=== PATIENT | male | born 1955 | race Caucasian/White ===

== ENCOUNTER 2021-01-11 05:31 | Observation (INO) ==
--- NOTE | 2020-12-29 09:32 | PAT Medication Instructions ---
Medication Instructions Date of Service December 29, 2020 Home Medications aspirin 81 mg tablet,delayed release 81 mg PO QAM nitroglycerin 0.4 mg sublingual tablet 0.4 mg SUBLINGUAL Q5M PRN atorvastatin 20 mg tablet 20 mg PO HS cholecalciferol (vitamin D3) 50 mcg (2,000 unit) capsule 50 mcg PO QAM dorzolamide 2 % eye drops 1 drp OPHTHALMIC (EYE) QAM latanoprost 0.005 % eye drops 1 drp OPHTHALMIC (EYE) HS lisinopril 10 mg tablet 10 mg PO BID metformin 1,000 mg tablet 1,000 mg PO BID metoprolol tartrate 25 mg tablet 25 mg PO BID Continue as directed nitroglycerin 0.4 mg sublingual tablet 0.4 mg SUBLINGUAL Q5M PRN (if needed) ASK your prescriber and surgeon aspirin 81 mg tablet,delayed release 81 mg PO QAM DO NOT take the morning of surgery cholecalciferol (vitamin D3) 50 mcg (2,000 unit) capsule 50 mcg PO QAM lisinopril 10 mg tablet 10 mg PO BID metformin 1,000 mg tablet 1,000 mg PO BID Take morning of surgery With a small sip of water, OTHERWISE NOTHING TO EAT OR DRINK AFTER MIDNIGHT: dorzolamide 2 % eye drops 1 drp OPHTHALMIC (EYE) QAM metoprolol tartrate 25 mg tablet 25 mg PO BID Take evening before surgery atorvastatin 20 mg tablet 20 mg PO HS latanoprost 0.005 % eye drops 1 drp OPHTHALMIC (EYE) HS lisinopril 10 mg tablet 10 mg PO BID metformin 1,000 mg tablet 1,000 mg PO BID metoprolol tartrate 25 mg tablet 25 mg PO BID Other Notes If you have any questions please call us at [phone] or [phone] or [phone] or [phone]
--- NOTE | 2021-01-02 08:39 | Anesthesiology Consultation ---
Date of Service January 02, 2021 Assessment & Plan (1) Encounter for pre-operative examination: - COVID screening: Per assessment on 01/02: Travel screen negative, no known COVID-19 positive contacts or current COVID-19 related symptoms. Patient vaccinated. Surgeon arranging preop COVID testing. Awaiting results. - Check BSG AM DOS - Cardiology telemedicine visit (08/07/20): 02/2020 echo/stress test findings reviewed with patient > medical management recommended. "c/o chest pain, angina pattern is unchanged at baseline.. CCS class II. C/o shortness of breath, does have mild dyspnea on exertion, which has not changed.. Reasonably active for stated age.. Clinically CAD status is stable angina as well as controlled CCS class II3, will continue same medications and close clinical monitoring.. Blood pressures adequately controlled.. CHF is clinically compensated." Patient denies cardiopulmonary complaints and reports good functional status at subsequent PAT visit 01/02/21. Chart Review Chart Review: Acceptable Risk for Surgery and Patient seen in Pre Admission Testing Teaching & Discussion Pre-Anesthesia Teaching/Discussion Notes: Instructed NPO after midnight before surgery,except medications with 15 cc of water. Medication instructions provided according to the PAT guidelines. History Surgery Operation Date: 01/11/21 09:40 Proposed Procedures p Robotic Laparoscopic Assisted Radical Retropublic Prostatectomy, Possible Open, Possible Pelvic Lymph Node Distection Possible Suprapubic Tube Placement - Mike Duran, DO Height/Weight Height: 5 ft 10 in Weight: 98.7 kg Allergies Allergy/AdvReac Type Severity Reaction Status Date / Time azithromycin Allergy Intermediate Rash Verified 12/28/20 08:23 latanoprost [From Xalatan] AdvReac Intermediate Blood Shot Verified 12/29/20 10:25 Eyes Medications Home Medications Medication Instructions Recorded Confirmed Last Taken aspirin 81 mg tablet,delayed 81 mg PO QAM 07/27/20 12/28/20 Unknown release nitroglycerin 0.4 mg sublingual 0.4 mg SUBLINGUAL Q5M PRN 07/27/20 12/28/20 Unknown tablet atorvastatin 20 mg tablet 20 mg PO HS tab 12/07/20 12/28/20 Unknown cholecalciferol (vitamin D3) 50 50 mcg PO QAM 12/07/20 12/28/20 Unknown mcg (2,000 unit) capsule dorzolamide 2 % eye drops 1 drp OPHTHALMIC (EYE) QAM ml 12/07/20 12/28/20 Unknown latanoprost 0.005 % eye drops 1 drp OPHTHALMIC (EYE) HS ml 12/07/20 12/28/20 Unknown lisinopril 10 mg tablet 10 mg PO BID tab 12/07/20 12/28/20 Unknown metformin 1,000 mg tablet 1,000 mg PO BID 12/07/20 12/28/20 Unknown metoprolol tartrate 25 mg tablet 25 mg PO BID tab 12/07/20 12/28/20 Unknown Past Medical History Medical History Arthritis LBP BPH (benign prostatic hyperplasia) CAD (coronary artery disease) 09/2015 > stent x1 10/2015 > stents x2 Follows with [facility] Diabetes NIDDM Elevated prostate specific antigen (PSA) Glaucoma Hypertension Nephrolithiasis Prostate cancer Exercise / Class Metabolic Activity II 4-5 Yardwork/Stairs/Walk up hill Past Family History Family History Father , Passed age 91 of natural causes Prostate cancer, Onset Age: 75 TURBT?? Then later had to have catheter placed Family history of diabetes mellitus Mother , Passed age 42 of cardiac disorder No problems noted. Sister No problems noted. Sister No problems noted. Sister No problems noted. Son No problems noted. Daughter No problems noted. Past Surgical History Surgical History H/O heart artery stent 09/2015 > stent x1 10/2015 > stents x2 [facility] History of colonoscopy History of foot surgery R/L (d/t industrial accident/feet were crushed)- 1970 History of prostate biopsy 10/26/20 History of umbilical hernia repair Past Anesthesia History No Hx of Anesthesia Complications and No Family Hx of Anesthesia Complications History of PONV No Hx of PONV and No Hx of Motion Sickness Social History Smoking Status: Former smoker Do You Dip or Chew Tobacco: No Smoking End Date: Quit 1980 Hx Alcohol Use: Yes Alcohol type: beer and wine Alcohol Intake Frequency Comment: Rare Hx Substance Use: No Review of Systems Patient denies chest pain, shortness of breath, dyspnea on exertion, fever, chills, cough, wheezing, palpitations. Physical Exam Vital Signs VITALS BP 112/74 P 56 TEMP 98.0 SP02 98%RA RESP 18 PHYSICAL Full cervical extension range of motion. Full TMJ range of motion. TMD 3.5 finger breaths Mallampati Score 3 Dentition: several missing including upper front (does have partial) Lungs: clear throughout to auscultation Cardiac: regular rate and rhythm, no murmurs noted Spine: normal Carotid arteries: negative bruit Extremities: no edema Lab Results Anesthesia Preop Results Results Anesthesia Widget: WBC 6.40 K/uL (4.8-10.8) 01/02/21 Hgb 16.0 g/dL (14.0-18.0) 01/02/21 Hct 45.5 % (42-52) 01/02/21 Plt 170 K/uL (130-400) 01/02/21 Na 140 mmol/L (136-145) 01/02/21 K 4.3 mmol/L (3.5-5.1) 01/02/21 Cl 109 mmol/L (98-107) H 01/02/21 CO2 25 mmol/L (21-32) 01/02/21 BUN 17 mg/dl (7-18) 01/02/21 Creat 0.78 mg/dl (0.6-1.4) 01/02/21 Glucose Level 117 mg/dl (70-99) H 01/02/21 HA1c 6.3 % (4.5-5.6) H 01/02/21 Blood Type O Positive 01/02/21 Antibody Screen NEGATIVE 01/02/21 Testing Laboratory Results 12/20/20 UA negative Electrocardiogram Date: 01/02/21 Normal sinus rhythm at 60 bpm. LAD. Unconfirmed report. Chest X-Ray Date: 01/02/21 Findings: + NAD Echocardiogram Date: 03/14/20 EF 45%, consistent with mildly reduced LV systolic function. Mild generalized hypokinesis. Grade 1 diastolic dysfunction. Mild TR. RVSP 26 mmHg. Ascending aorta is mildly dilated (3.8 cm). Stress Test Date: 03/14/20 Type: exercise Stress test positive for ischemia by EKG criteria in recover period (noted to be positive during the recovery period on his previous stress test as well per report). 88% MPHR. Fair exercise tolerance. 7.0 METs. Hemodynamic response normal. Reviewed by cardiology and determined that they will monitor symptoms r/t stress test findings. Cardiac Catheterization Date: 02/07/17 Angiographically moderate to severe three-vessel occlusive coronary disease. Patent stents in LAD, circumflex and right coronary arteries. Mildly reduced LV systolic function. Normal LVEDP. Given present coronary anatomy, patient should be managed medically with aggressive risk factor modification and close clinical follow-up per report. PCI of LAD can be considered for drug refractory angina. Patient denies cardiopulmonary complaints and reports good functional status at PAT visit 01/02/2021.
[2021-01-11] MEDS ORDERED: LACTATED RINGER'S 1,000 ML IV SCH (06:00)
[2021-01-11] MEDS ORDERED: ceFAZolin 2000MG 2,000 MG/15 ML SYR IV SCH (06:00)
[2021-01-11] MEDS ORDERED: HEPARIN SOD 5,000 UNIT/0.5 ML VIAL SQ SCH (06:00)
[2021-01-11] MEDS ORDERED: LR 15ML/HR IV SCH (06:00)
[2021-01-11] MEDS ORDERED: ONDANSETRON INJ 2 MG/ML 2 ML VIAL ONE (06:43)
[2021-01-11] MEDS ORDERED: ROCURONIUM BROMIDE 10 MG/ML 5 ML VIAL IV ONE ×3 (06:43→11:43)
[2021-01-11] MEDS ORDERED: DEXAMETHASONE SOD INJ 4 MG/ML VIAL ONE (06:43)
[2021-01-11] MEDS ORDERED: PROPOFOL IV EMULSION 10 MG/ML 20 ML VIAL IV ONE (06:43)
[2021-01-11] MEDS ORDERED: LIDOCAINE 2% 2 ML VIAL/AMP(20MG/ML) INFIL ONE (06:43)
[2021-01-11] MEDS ORDERED: PHENYLEPHRINE 100MCG/ML 5ML SYR ONE (06:43)
[2021-01-11] MEDS ORDERED: MIDAZOLAM HCL 1 MG/ML 2ML VIAL ONE (06:44)
[2021-01-11] MEDS ORDERED: HYDROmorphone INJ 2 MG/ML SYR/VIAL ONE (06:44)
[2021-01-11] MEDS ORDERED: SUGAMMADEX SODIUM 200 MG/2 ML VIAL IV ONE (07:00)
--- NOTE | 2021-01-11 07:03 | History & Physical Bridge Note ---
Date of Service January 11, 2021 History & Physical Bridge Note I have examined the patient, reviewed the History & Physical and in the interval since the performance of the History & Physical I have noted the following changes of clinical significance: no changes noted
[2021-01-11] MEDS ORDERED: BUPIVACAINE 0.5 % 5 MG/1 ML MPF 30ML VIAL ONE (07:22)
[2021-01-11] MEDS ORDERED: ONDANSETRON INJ 2 MG/ML 2 ML VIAL IV PRN ×2 (08:23→14:12)
[2021-01-11] MEDS ORDERED: HYDROmorphone INJ 2 MG/ML SYR/VIAL IV PRN (08:23)
[2021-01-11] MEDS ORDERED: ePHEDrine sulfate 50 MG/ML AMP IV PRN (08:23)
[2021-01-11] MEDS ORDERED: ATROPINE SULFATE 0.1 MG/ML 10ML SYR IV PRN (08:23)
[2021-01-11] MEDS ORDERED: SURGICEL ABSORB HEMOSTAT 2IN X 14IN TOP ONE (10:48)
[2021-01-11] MEDS ORDERED: fentaNYL citrate 100 MCG/2 ML VIAL ONE (12:07)
--- NOTE | 2021-01-11 12:41 | Operative Report ---
PG Post Operative Report Pre & Post Diagnosis Operation Date: 01/11/21 07:30 Pre-Op Diagnosis: Prostate Cancer Post-Op Diagnosis: Prostate Cancer I identified the patient and participated in the time-out.: Yes Procedure Operation Date: 01/11/21 07:30 Actual Procedures p Robotic Laparoscopic Assisted Radical Retropubic Prostatectomy and extensive lysis of adhesions (Not Applicable) - Mike Duran DO Surgeon Mike Duran, II, DO Char Filter Operator Jonathan MATHUR Estimated Blood Loss 100 Findings Consistent with Post-Op Diagnosis Severe adhesions of omentum to mesh/hernia repair. Specimens Prostate and Seminal Vesicle Drains 10 Fr Flat Drain 18 Fr Sky catheter. Anesthesia Type General Complications none Disposition Disposition: Recovery Room Indications Patient with Prostate Cancer. Risk and benefits were discussed at length. Patient elected to undergo robotic assisted laparoscopic Radical Prostatectomy. Description of Procedure The patient was brought to the operative suite and placed under general endotracheal intubation anesthesia in the supine position. The patient was transferred to the dorsal lithotomy position. At this point, the patient prepped and draped in the usual sterile fashion and a timeout was completed. Preoperative antibiotics of Ancef 2 grams had been given. SRINIVAS's and SCD's were placed on the patient's lower extremities. A catheter was placed using sterile technique. With the time out completed the patient was placed into Trendelenburg and the skin at the umbilicus was anesthetized. A small incision was made superior to the umbilicus. The mesh from his umbilical repair was noted. It was decided to go superior to the edge and cut down under direct visualization. Once in the abdomen a significant amount of adhesions were noted to the mesh and site of repair. The lateral port site was marked and anesthetized. A small incision was made and under palpation, A Varess Needle was placed and confirmed to be in the abdominal cavity. The Abdominal cavity was insufflated to 15 mmHG. The 8 mm port was then placed in the lateral incision. A laparoscopic camera was placed into the port and the abdominal cavity inspected. No concerning features were noted. Extensive adhesions were noted from the omentum to the mesh. No bowel was noted to be adhered to the midline however laterally and superiorly there was bowel adhesions. These were away from the operative area and were not manipulated. At this point, the skin was marked for port placement and 8mm working ports were placed. The skin was anesthetized down to fascia and an approx 1cm incision was made to place the 2 x 8mm ports. A 12mm and 5 mm music assistant ports were also placed in similar fashion under direct visualization. Extensive lysis of adhesion was then completed laparoscopically. Approx 30 minutes were required in addition to remove the adhesions from the operative fie ld. Finally a 12 mm port with the 8 mm port was placed at the umbilical incision. The patient was transferred into steep Trendelenburg position and the legs lowered. The robot was positioned and docked. The camera was placed and all trocars were positioned under direct visualization. Jonathan MATHUR was integral in port placement, camera utilization, and docking procedure. She remained in sterile attire and then proceeded to assist the remainder of the case. At this point, I transitioned to the robotic console. At this point, the sigmoid colon was mobilized superiorly and the pelvis asse ssed. Adhesions were freed to allow mobilization. The peritoneum in the midline was opened between rectum and bladder and the vas deferens and seminal vesicles exposed. These were dissected with blunt technique. The vas was clipped and cut and mobilized. Cautery was used to assist dissection avoiding the tissue posteriorly near the rectum. The tissues lateral to the seminal vesicles were clipped with a hemolock and all bleeding controlled. This was taken as inferior as possible from this position. The medial umbilical ligaments were then identified and the peritoneum directly lateral on the right followed by the left was opened. The tissues were bluntly dissected to free the bladder's lateral attachments. This was taken down to the pubic bone and exposed the endopelvic fascia bilaterally. The medial ligaments were cut and the bladder dropped. The tissues was dissected anterior to the prostate. The endopelvic fascia on each side was then opened and the lateral edges of the prostate dissected. The Dorsal venous complex of the prostate was dissected and assessed. A 2-0 PDS suture was used to ligate the vessels. A suspension stitch was used and clipped. Electrocautery was used to cut the anterior attachments, the puboprostatic ligaments, and venous tissues. A large artery on the left, likely an accessory pudendal, was able to be persevered with careful dissection. The sky was manipulated to better visual the bladder neck and dissection was taken using electrocautery. The bladder neck was opened and dissected from the prostate. The UO were identified and dissection taken in a direction to avoid each side. The vas stump and seminal vesicles were exposed and used to assist in traction to dissect. The prostatic pedicles were better exposed. The posterior prostate was dissected. An attempt was made to limit cautery and utilize cold dissection of the lateral posterior prostate to attempt preservation of the neurovascular bundle bilaterally. Hemolock clips were utilized to clip the prostatic pedicle bilaterally. The dissection was taken to the apex of the prostate. The anterior prostate was released and the urethra exposed. Cold cutting was used to open the anterior portion and expose the catheter. This was removed and the urethra incised. The prostate was further freed and grasped and removed from the field. The entire dissection bed was inspected.Hemostatic agent was placed in the region. No areas of injury or bleeding was noted. Care was taken to examine the perirectal tissues. A probe was placed and no injuries or other issues were o bserved. The bladder neck and urethra were then approximated with a running barbed suture starting at the 5 o'clock position and moving to the 12 o'clock on each side. This was tied at the anterior portion. A leak test was completed without any evidence of issues. The entire dissection space was inspected one final time. No bleeding or injuries or areas of concern were noted. No tumor or other concerning features were noted. At this point, the robot was undocked and moved away from the patient. The patient was taken out of Trendelenberg. The port sites were all assessed laparoscopically. The endoscopic bag was moved into the midline port. The 10mm port site was closed with the Juan Pino device. The other ports were assessed and no issues observed. The umbilical incision was opened further exposing fascia which was then opened in order to removed the prostate in the bag. The prostate was removed. A running PDS suture was used to close fascia and included the superior edge of the mesh. The skin at each site was closed with a celine. The area was cleaned and bandages placed on each incision. The patient was cleaned and bandaged, aroused from anesthesia, and transferred to the pacu in stable condition having tolerated the procedure well with no complications. I was present and participated in all aspects of the procedure. Jonathan MATHUR was critical in the portions as mentioned above. Will plan to observe postoperatively and monitor. Sky to be remain in place until followup. I attest to the content of the Intraoperative Record and any orders documented therein. Any exceptions are noted below.
[2021-01-11] MEDS ORDERED: PHARMACY GLYCEMIC MGMT CONSULT PRN (13:05)
[2021-01-11] MEDS: fentaNYL citrate 100 MCG/2 ML VIAL IV PRN ×2 (13:14→13:23)
--- NOTE | 2021-01-11 13:15 | Anesthesiology Progress Note ---
Date of Service January 11, 2021 Anesthesia Post Procedure Vital Signs Vital Signs: Temp Pulse Pulse Resp BP Pulse Ox 01/11/21 13:05 76 15 127/98 99 01/11/21 12:55 91 H 17 138/95 97 01/11/21 12:47 36.3 C L 76 20 137/91 94 01/11/21 06:14 36.7 C 67 20 105/82 97 Pain Intensity Lower Abdomen: Pain Intensity: 4 Transfer of Care Handoff Completed per policy Notes Mental Status: alert / awake / arousable and participated in evaluation Patient Amnestic to Procedure: Yes Nausea / Vomiting: adequately controlled Pain: adequately controlled Airway Patency, RR, SpO2: stable & adequate BP & HR: stable & adequate Hydration State: stable & adequate Anesthetic Complications: no major complications apparent and Pt Satisfied with anesthetic care
[2021-01-11 13:20] LABS: Basophils # (auto) 0.01 K/uL (0-0.2); Basophils % (auto) 0.1 %; Hematocrit (blood only) 49.4 % (42-52); Hemoglobin 17.1 g/dL (14.0-18.0); Immature Granulocytes # (auto) 0.06 K/uL (0.00-0.02); Immature Granulocytes % (auto) 0.4 %; Lymphocytes # (auto) 0.92 K/uL (1.2-3.4); Lymphocytes % (auto) 5.4 %; Mean Corpuscular Hemoglobin 31.2 pg (25-34); Mean Corpuscular Volume 90.1 fL (80-100); Mean Platelet Volume 10.5 fL (7.4-10.4); Monocytes # (auto) 0.43 K/uL (0.11-0.59); Monocytes % (auto) 2.5 %; Neutrophils # (auto) 15.56 K/uL (1.4-6.5); Neutrophils % (auto) 91.6 %; Platelet Count 179 K/uL (130-400); RDW Coefficient of Variation 13.2 % (11.5-14.5); RDW Standard Deviation 43.4 fL (36.4-46.3); Red Blood Count 5.48 M/uL (4.7-6.1); White Blood Count 16.98 K/uL (4.8-10.8)
[2021-01-11 13:32] LABS: Mean Corpuscular Hgb Conc 34.6 g/dL (32-36)
[2021-01-11 13:37] LABS: BUN Creatinine Ratio 16.1 (10-20); Calcium 8.7 mg/dl (8.5-10.1); Creatinine Clr Calc Pharmacy 62.9 ml/min; Est GFR (African American) 63.7 ml/min; Est GFR (Non-African American) 54.9 ml/min; Potassium 5.2 mmol/L (3.5-5.1)
[2021-01-11] MEDS ORDERED: MoRPHine SULFATE 2 MG/ML CARP IV PRN ×2 (14:12)
[2021-01-11] MEDS ORDERED: ACETAMINOPHEN 325 MG TAB PO PRN (14:12)
[2021-01-11] MEDS ORDERED: oxyCODONE HCL IR 5 MG TAB (IMMEDIATE RELEASE) PO PRN (14:12)
[2021-01-11] MEDS ORDERED: NITROGLYCERIN SL 0.4 MG/TAB TAB SL PRN (14:12)
[2021-01-11] MEDS ORDERED: DEXTROSE 50% 50 ML SYRINGE IV PRN (14:45)
[2021-01-11] MEDS ORDERED: CARBOHYDRATES FOR HYPOGLYCEMIA PO PRN (14:45)
[2021-01-11] MEDS ORDERED: GLUCOSE 40% GEL 15 GM TUBE PO PRN (14:45)
[2021-01-11] MEDS ORDERED: GLUCAGON FOR INJ 1 MG VIAL IM PRN (14:45)
[2021-01-11] MEDS ORDERED: GLUCOSE 10 TABS/TUBE PO PRN (14:45)
--- NOTE | 2021-01-11 14:48 | Pharmacy Report ---
Pharmacy Glycemic Short Note 2 - Date of Service January 11, 2021 - Glycemic Short BSG Results (Last 24 hours): 01/11/21 01/11/21 01/11/21 06:40 13:00 13:12 Glucose 191 H POC Glucose 126 H 167 H 01/11/21 14:25 Glucose POC Glucose 194 H OUTPATIENT ANTIDIABETIC REGIMEN: * Metformin 1000 mg PO BIDM * HbA1c = 6.3% (01/02/21) ASSESSMENT: * 65 yo M admitted this afternoon s/p prostatectomy. Pharmacy has been consulted to assist with inpatient glycemic management. * Preoperative BSG was 126 mg/dL. Postoperative BSG was 167 mg/dL. No perioperative steroids were given. Patient is ordered a clear liquid diet. * Pt is maintained on oral antidiabetic agents as an outpatient * Oral agents are not recommended for inpatient use d/t drug interactions, changing PO intake, and difficulty titrating for acute hyper/hypoglycemia. ADA recommends re-initiating outpatient oral agents 1-2 days prior to discharge if/when appropriate if they were held on admission. Will hold oral agents for admission and utilize SQ basal bolus insulin regimen which is the recommended regimen for inpatient glycemic control. * Will initiate weight based insulin dosing for insulin nina patient and titrate based on BSG trends. * ADA & AACE recommend a goal blood sugar range 140-180 mg/dl for the majority of critically ill & non-critically ill patients. However, more stringent targets may be selected in individual cases. Will utilize more stringent goal of 110-140mg/dl based on patient age & comorbidities. Additionally, tighter glycemic control is warranted to facilitate wound/infection healing. PLAN FOR INPATIENT GLYCEMIC CONTROL: * Hold outpatient oral diabetes medications * Consider restarting Metformin tomorrow AM if tolerating PO intake * Basal insulin * None * Bolus insulin * NovoLog per scale ACHS or Q6hrs while NPO * Goal Range: Low 110 mg/dL - High 140 mg/dL * Correction Factor: 25 mg/dL/unit * Nutritional / Prandial insulin per carb ratio of 1 unit per 8 grams CHO consumed PLAN FOR DISCHARGE: * HbA1c is at goal for this patient. Continue Metformin 1000 mg PO BIDM upon discharge.
[2021-01-11] MEDS: LACTATED RINGER'S 1,000 ML IV SCH (17:05)
[2021-01-11] MEDS: ceFAZolin 2000MG 2,000 MG/15 ML SYR IV SCH ×2 (17:07→23:19)
[2021-01-11] MEDS: INSULIN ASPART 100 UNITS/ML 3 ML PEN SC SCH ×2 (17:52→22:19)
[2021-01-11] MEDS: lisinopril 10 MG TAB PO SCH (22:22)
[2021-01-11] MEDS: ATORVASTATIN 20 MG TAB PO SCH (22:23)
[2021-01-11] MEDS: METOPROLOL TARTRATE 25 MG TAB PO SCH (22:24)
[2021-01-11] MEDS: HEPARIN SOD 5,000 UNIT/0.5 ML VIAL SQ SCH (22:24)
[2021-01-11] MEDS: LATANOPROST 0.005% OP SOLN 2.5 ML BTL OP SCH (22:25)
[2021-01-11] MEDS ORDERED: CALCIUM CARBONATE 500 MG CHEWABLE TAB PO PRN (22:51)
[2021-01-11] MEDS ORDERED: CALCIUM CARBONATE 500 MG CHEWABLE TAB ONE (23:32)
[2021-01-12] MEDS: oxyCODONE HCL IR 5 MG TAB (IMMEDIATE RELEASE) PO PRN ×4 (02:23→21:04)
[2021-01-12] MEDS: LACTATED RINGER'S 1,000 ML IV SCH ×3 (02:24→21:04)
[2021-01-12 06:41] LABS: Hematocrit (blood only) 39.7 % (42-52); Hemoglobin 13.6 g/dL (14.0-18.0); Immature Granulocytes # (auto) 0.04 K/uL (0.00-0.02); Immature Granulocytes % (auto) 0.4 %; Lymphocytes % (auto) 10.5 %; Mean Corpuscular Hemoglobin 30.6 pg (25-34); Mean Corpuscular Hgb Conc 34.3 g/dL (32-36); Mean Corpuscular Volume 89.4 fL (80-100); Mean Platelet Volume 10.5 fL (7.4-10.4); Monocytes # (auto) 1.57 K/uL (0.11-0.59); Neutrophils # (auto) 7.76 K/uL (1.4-6.5); Neutrophils % (auto) 74.1 %; Platelet Count 163 K/uL (130-400); RDW Coefficient of Variation 13.4 % (11.5-14.5); RDW Standard Deviation 43.8 fL (36.4-46.3); Red Blood Count 4.44 M/uL (4.7-6.1); White Blood Count 10.47 K/uL (4.8-10.8)
[2021-01-12 06:59] LABS: BUN Creatinine Ratio 18.9 (10-20); Calcium 8.5 mg/dl (8.5-10.1); Creatinine Clr Calc Pharmacy 84.5 ml/min; Est GFR (Non-African American) 78.5 ml/min; Potassium 4.4 mmol/L (3.5-5.1)
[2021-01-12] MEDS: CHOLECALCIFEROL 1,000 UNITS 25 MCG TAB PO SCH (07:46)
[2021-01-12] MEDS: DORZOLAMIDE HCL 2% OPH SOLN 10 ML BTL OP SCH (07:47)
[2021-01-12] MEDS: HEPARIN SOD 5,000 UNIT/0.5 ML VIAL SQ SCH ×2 (07:48→21:07)
[2021-01-12] MEDS: METOPROLOL TARTRATE 25 MG TAB PO SCH ×2 (07:48→21:09)
[2021-01-12] MEDS: lisinopril 10 MG TAB PO SCH ×2 (07:48→21:10)
--- NOTE | 2021-01-12 09:10 | Urology Progress Note ---
Date of Service January 12, 2021 Assessment & Plan (1) Prostate cancer: Plan: 65 yo M POD#1 s/p robotic prostatectomy with Dr. Duran. - Doing well, progressing as expected - Afebrile, lab work reviewed - creatinine 0.99, WBC 10.47, Hgb 13.6 - BP slightly low this morning, AM BP medications held. Asymptomatic, though he has not been OOB yet today. - Continue to monitor closely - hold BP medications tonight if remains low - Will continue maintenance fluids at this time - Tolerating clear liquid diet - will advance to full liquids for lunch - Incisions appropriate - Encouraged OOB ambulation - Maintain Michael catheter - KOTA with minimal output overnight - likely will remove drain prior to discharge - Anticipate discharge to home tomorrow presuming he continues to progress as expected Attending note: Patient having some mild hypotension this morning. Patient was independently evaluated and examined. Patient has been up ambulating. Has no major complaints or issues. Is dealing with some minor discomfort. Is tolerating diet. Minimal output from KOTA. We will continue to follow. Discussed the procedure. Discussed concerns and issues. Discussed plan for postoperative management. We will plan to continue to follow. Likely observe 1 more day. If patient is improved drastically can likely discharge tomorrow. Continue Michael catheter until follow-up. Maintain celine until removal which will be set up through the office Admission and Anticipated Discharge Date Admission Date: January 11, 2021 Subjective 65 yo M POD#1 s/p robotic prostatectomy with Dr. Duran. Patient awake, alert, sitting up in bed and eating breakfast on arrival. No acute issues overnight, though notes that he did not sleep well. Reports incisional pain, well controlled with PO oxycodone at this time - last dose at 0745 today. Tolerating clear liquid diet. No nausea or vomiting. Passing flatus. Michael catheter intact, patent and draining clear yellow urine with blood-tinged sediment. Reports he was out of bed to bedside chair yesterday evening, but has not ambulated hallway yet. No fever or chills. BP 99/63 this morning - nursing held BP medications. Denies dizziness, lightheadedness. Chart review: Afebrile. Creatinine 0.99, WBC 10.47, Hgb 13.6. KOTA output - 20 mL overnight. No additional concerns today. Review of Systems Constitutional: as per Subjective / HPI Gastrointestinal: as per Subjective / HPI Genitourinary: + as per Subjective / HPI Physical Exam Constitutional: well developed and well nourished; no acute distress and not ill appearing Respiratory: normal respiratory effort and able to speak in complete sentences; no respiratory distress and no labored breathing Cardiovascular: Extremities: no pedal edema Gastrointestinal (Abdomen): Inspection/Auscultation: abdomen normal to inspection; abdomen not distended Percussion/Palpation: + abdomen tender (mildly tender near incisions) and abdomen soft; no guarding Musculoskeletal: Head/Neck/Chest: normocephalic and head atraumatic Skin: Surgical incisions appear healthy, well approximated, celine intact. Right lateral incision with small amount of drainage on dressing, KOTA drain intact with scant sanguinous output. Neurologic: moves all extremities and awake Psychiatric: Orientation: alert, oriented x 3 and cooperative Eye Contact: good eye contact Genitourinary: Michael intact patent and draining clear yellow urine with blood tinged sediment in tubing Results & Data ([facility]) Vital Signs (Past 12 Hours) Vital Signs Temp Pulse Resp BP BP Pulse Ox 01/12/21 07:02 36.4 C L 73 16 97/63 L 99/63 L 96 01/12/21 03:29 36.5 C 76 18 106/63 92 01/11/21 22:26 36.7 C 93 H 15 122/80 96 01/11/21 22:17 93 H 115/79 PG Care Time/CCT Total # of Minutes Spent Total Time Spent with Patient: Total time spent is greater than 50% in coordination of care (as documented) at patient's floor/unit and/or counseling patient: Coding Level of Care Code 49758 Subseq Hosp Care Lvl 2 Diagnoses Prostate cancer C61
--- NOTE | 2021-01-12 09:35 | Pharmacy Report ---
Pharmacy Glycemic Short Note 2 - Date of Service January 12, 2021 - Glycemic Short BSG Results (Last 24 hours): 01/11/21 01/11/21 01/11/21 13:00 13:12 14:25 Glucose 191 H POC Glucose 167 H 194 H 01/11/21 01/11/21 01/12/21 16:56 20:49 05:29 Glucose 155 H POC Glucose 174 H 243 H 01/12/21 08:16 Glucose POC Glucose 141 H OUTPATIENT ANTIDIABETIC REGIMEN: * Metformin 1000 mg PO BIDM * HbA1c = 6.3% (01/02/21) ASSESSMENT: 01/12: * William received a total of 5 units of insulin yesterday, all bolus * BSGs trended up postoperatively: [phone] mg/dL * Fasting BSG was 141 mg/dL this AM - acceptable * Patient did refuse bolus insulin at dinner last night, only received 5 units at bedtime * Since renal function improved and patient tolerating PO intake, will restart Metformin today 01/11: * 65 yo M admitted this afternoon s/p prostatectomy. Pharmacy has been consulted to assist with inpatient glycemic management. * Preoperative BSG was 126 mg/dL. Postoperative BSG was 167 mg/dL. No perioperative steroids were given. Patient is ordered a clear liquid diet. * Pt is maintained on oral antidiabetic agents as an outpatient * Oral agents are not recommended for inpatient use d/t drug interactions, changing PO intake, and difficulty titrating for acute hyper/hypoglycemia. ADA recommends re-initiating outpatient oral agents 1-2 days prior to discharge if/when appropriate if they were held on admission. Will hold oral agents for admission and utilize SQ basal bolus insulin regimen which is the recommended regimen for inpatient glycemic control. * Will initiate weight based insulin dosing for insulin nina patient and titrate based on BSG trends. * ADA & AACE recommend a goal blood sugar range 140-180 mg/dl for the majority of critically ill & non-critically ill patients. However, more stringent targets may be selected in individual cases. Will utilize more stringent goal of 110-140mg/dl based on patient age & comorbidities. Additionally, tighter glycemic control is warranted to facilitate wound/infection healing. PLAN FOR INPATIENT GLYCEMIC CONTROL: * Restart home Metformin 1000 mg PO BIDM * Basal insulin * None * Bolus insulin * NovoLog per scale ACHS or Q6hrs while NPO * Goal Range: Low 110 mg/dL - High 140 mg/dL * Correction Factor: 25 mg/dL/unit * Nutritional / Prandial insulin per carb ratio of 1 unit per 8 grams CHO consumed PLAN FOR DISCHARGE: * HbA1c is at goal for this patient. Continue Metformin 1000 mg PO BIDM upon discharge.
[2021-01-12] MEDS: INSULIN ASPART 100 UNITS/ML 3 ML PEN SC SCH ×4 (09:41→21:03)
[2021-01-12] MEDS: metFORMIN HCL 500 MG TAB PO SCH ×2 (11:16→18:39)
[2021-01-12] MEDS: ATORVASTATIN 20 MG TAB PO SCH (21:09)
[2021-01-12] MEDS: LATANOPROST 0.005% OP SOLN 2.5 ML BTL OP SCH (21:11)
--- NOTE | 2021-01-13 01:05 | Urology Progress Note ---
Date of Service January 13, 2021 Assessment & Plan (1) Prostate cancer: Plan: POD#2 s/p RALP - normotensive, was slightly hypotensive yesterday (held meds) - seems to be progressing appropriately, plan for d/c home this AM - advance diet now - ambulate - remove BIMAL drain Admission and Anticipated Discharge Date Admission Date: January 11, 2021 Subjective Feels well pain controlled moving around - but has not yet ambulated in the carpio tolerating a diet (clears - ready for reg) Physical Exam Physical Exam: comfortable appearing normotensive abd soft, incisions appropriate - minor bruising urine clear bimal serosang Results & Data ([facility]) Vital Signs (Past 12 Hours) Vital Signs Temp Pulse Resp BP Pulse Ox 01/12/21 23:33 37.1 C 76 16 107/72 94 01/12/21 21:13 97 H 136/75 01/12/21 15:07 36.9 C 94 H 16 109/73 93 PG Care Time/CCT Total # of Minutes Spent Total Time Spent with Patient: Total time spent is greater than 50% in coordination of care (as documented) at patient's floor/unit and/or counseling patient: Coding Level of Care Code 95526 Subseq Hosp Care Lvl 2 Diagnoses Prostate cancer C61
[2021-01-13 06:27] LABS: Eosinophils # (auto) 0.06 K/uL (0-0.5); Eosinophils % (auto) 0.8 %; Hematocrit (blood only) 35.7 % (42-52); Hemoglobin 12.3 g/dL (14.0-18.0); Immature Granulocytes # (auto) 0.02 K/uL (0.00-0.02); Immature Granulocytes % (auto) 0.3 %; Lymphocytes # (auto) 1.45 K/uL (1.2-3.4); Lymphocytes % (auto) 19.1 %; Mean Corpuscular Hemoglobin 31.3 pg (25-34); Mean Corpuscular Hgb Conc 34.5 g/dL (32-36); Mean Corpuscular Volume 90.8 fL (80-100); Monocytes # (auto) 0.96 K/uL (0.11-0.59); Monocytes % (auto) 12.6 %; Neutrophils # (auto) 5.11 K/uL (1.4-6.5); Neutrophils % (auto) 67.2 %; Platelet Count 137 K/uL (130-400); RDW Coefficient of Variation 13.5 % (11.5-14.5); Red Blood Count 3.93 M/uL (4.7-6.1)
[2021-01-13 07:04] LABS: BUN Creatinine Ratio 16.9 (10-20); Calcium 8.3 mg/dl (8.5-10.1); Creatinine Clr Calc Pharmacy 114.6 ml/min; Est GFR (African American) 111.2 ml/min
[2021-01-13] MEDS: LACTATED RINGER'S 1,000 ML IV SCH (07:39)
[2021-01-13] MEDS: oxyCODONE HCL IR 5 MG TAB (IMMEDIATE RELEASE) PO PRN (08:15)
[2021-01-13] MEDS: metFORMIN HCL 500 MG TAB PO SCH (08:16)
[2021-01-13] MEDS: DORZOLAMIDE HCL 2% OPH SOLN 10 ML BTL OP SCH (08:17)
[2021-01-13] MEDS: HEPARIN SOD 5,000 UNIT/0.5 ML VIAL SQ SCH (08:17)
[2021-01-13] MEDS: CHOLECALCIFEROL 1,000 UNITS 25 MCG TAB PO SCH (08:17)
[2021-01-13] MEDS: METOPROLOL TARTRATE 25 MG TAB PO SCH (08:18)
[2021-01-13] MEDS: lisinopril 10 MG TAB PO SCH (08:18)
[2021-01-13] MEDS: INSULIN ASPART 100 UNITS/ML 3 ML PEN SC SCH ×2 (09:29→13:18)
--- NOTE | 2021-01-15 10:59 | Discharge Summary ---
Date of Service January 15, 2021 Admission HPI Per Admitting Provider See H&P Admission Exam Per Admitting Provider See H&P Principal Diagnosis Prostate Cancer Discharge Exam General: Alert in no acute distress. HEENT: Normocephalic Atraumatic. Inspection normal. Psychologic: Normal affect. Skin: [place] and Dry. No rashes or visible lesions. Abdomen: Soft Non-distended. No rebound or guarding. Discharge Data Allergies Allergy/AdvReac Type Severity Reaction Status Date / Time azithromycin Allergy Intermediate Rash Verified 01/11/21 06:10 latanoprost [From Xalatan] AdvReac Intermediate Blood Shot Verified 01/11/21 06:10 Eyes Procedures Performed Operation Date: 01/11/21 07:30 Actual Procedures p Robotic Laparoscopic Assisted Radical Retropubic Prostatectomy (Not Applicable) - Mike Duran DO Hospital Course (1) Prostate cancer: POD#2 s/p RALP - normotensive, was slightly hypotensive yesterday (held meds) - seems to be progressing appropriately, plan for d/c home this AM - advance diet now - ambulate - remove KOTA drain Total Time Total Time Spent Total Time Spent (In Minutes): 10 minutes Total Time Includes: Examination of the Patient, Discharge Planning, Medication Reconciliation and Communication With Other Providers Discharge Plan Discharge Items Patient Disposition: Home - Self-Care Reason For Visit: Prostate Cancer Discharge Diagnosis: Prostate Cancer Activity: Per Instructions section Lifting: No more than 25 pounds Bathing Comment: Okay to shower after discharge, no tub bath or soaking Sexual Activity: Wait until after follow-up appointment Exercise/Sports: Wait until after follow-up appointment Driving/Machine Use: No driving while taking prescription pain medication Non-emergency contact: Surgeon and Urologist Call non-emergency contact if: you have any medication questions, your pain is not controlled, your pain is worsening, you have a fever, your temperature is above 101, your wound has increased redness, your wound has increased drainage and your wound pain has increased Follow-up/Referrals: Mike Duran DO [Physician] - 01/30/21 10:00 am Gissel Malave MD [Primary Care Provider] - Diet: Carb Consistent or DM2 Addtl Attending Provider Instructions: Please take all medications as prescribed and keep all follow-ups as scheduled. Please call our office at [phone] with any questions, concerns or need to reschedule appointments for any reason. We are happy to assist you. We have sent an antibiotic to your pharmacy of choice. Please begin antibiotic as prescribed the day BEFORE your scheduled voiding trial at [facility]. Please continue antibiotic every 12 hours through the day AFTER your voiding trial. Activity: We recommend having someone with you for the first few days after surgery to help care for you. For the first 2 weeks after surgery, we would like you to get up and walk around your house. However, we recommend limit physical activity that would increase your heart rate. This will allow your body to rest and heal. Take naps if you feel tired. Don't lift anything heavier than 10 pounds, mow the law or ride a bicycle until your follow-up appointment. Please avoid long car rides. Home Care: Unless directed otherwise, drink 6 to 8 glasses of water a day (enough to keep your urine light colored). This will also help keep a healthy flow of urine. We recommend using a stool softener for the first two weeks to avoid constipation. Michael Catheter or Suprapubic Catheter care: Keep the catheter well secured with either a leg back or leg strap with large bag. Empty your bag when it's about half full. You may notice some blood in the bag. This is normal after surgery and while the catheter is in place. Use mild soap (such as Dove or Dial) and water to wash the catheter and the head of your penis daily, or more frequently if needed. Return to your normal diet, we encourage good protein intake to promote healing. You may shower as normal. Please avoid tub baths or soaking until catheter removed and incisions well healed. Wearing sweat pants while you have the catheter is recommended, they will be more comfortable. Follow-up Your follow up appointments for having your catheter removed, and follow up with your physician should already be scheduled. If you have any questions regarding this, please contact our office. Your final pathology report will be discussed at your physician follow-up appointment. Call [facility] at [phone] right away if you have any of the following: Chest pain or trouble breathing (call 911 or go to the hospital) Fever of 101F or higher, uncontrolled vomiting Heavy bleeding, clots, or bright red blood from the catheter Catheter that falls out or stops draining Foul-smelling discharge from your catheter Redness, swelling, warmth, or increased pain at your incision site Drainage, pus, or bleeding from your incision Pending Studies at Discharge: Yes Stand-Alone Forms: My [facility] [employer], Smoking Cessation Medications and DC Order Prescriptions: New docusate sodium [Colace] 100 mg capsule 100 mg PO BID Qty: 60 RF: 0 oxycodone-acetaminophen [Percocet] 5-325 mg tablet 1 tab PO TID PRN (Reason: pain) Qty: 12 RF: 0 ciprofloxacin HCl 500 mg tablet 500 mg PO BID Qty: 6 RF: 0 Continued metformin 1,000 mg tablet 1,000 mg PO BID RF: 0 cholecalciferol (vitamin D3) 50 mcg (2,000 unit) capsule 50 mcg PO QAM RF: 0 aspirin 81 mg tablet,delayed release (DR/EC) 81 mg PO QAM RF: 0 nitroglycerin [Nitrostat] 0.4 mg tablet, sublingual 0.4 mg sublingual Q5M PRN (Reason: Chest Pain) RF: 0 dorzolamide 2 % drops 1 drp ophthalmic (eye) QAM RF: 0 atorvastatin 20 mg tablet 20 mg PO HS RF: 0 lisinopril 10 mg tablet 10 mg PO BID RF: 0 metoprolol tartrate 25 mg tablet 25 mg PO BID RF: 0 latanoprost 0.005 % drops 1 drp ophthalmic (eye) HS RF: 0 Discharge Orders: Discharge Order (Routine); Ordered 01/13/21 Ordered By: Joni Restrepo/Other Patient Handouts: Prostate Cancer Tx Coping, Prostate Anatomy Admission Data Admit Date/Time: 01/11/21 12:52 Attending Provider: Mike Duran Admit Provider: Mike Duran Primary Care Provider: Gissel Malave Other Interventions: Discharge Summary Assessment (RN) Last Done: 01/13/21 10:34 Coding Level of Care Code D/C DAY MANAGEMENT <30 MINS Diagnoses Prostate cancer C61
== END 2021-01-13 15:15 | disposition home or self-care (01) ==
LOC: ASU 05:31 → 3N 12:52 → INTOOBSV 12:52

== ENCOUNTER 2024-12-06 02:34 | Observation (INO) ==
--- NOTE | 2024-12-06 02:51 | Emergency Department Note ---
History of Present Illness General Chief complaint: Flank Pain Stated complaint: STOMACH PAIN, SIDE PAIN Time Seen by Provider: 12/06/24 02:40 History of Present Illness Maximum Pain Intensity: 8 This 69-year-old male presents ER complaining of right lower quadrant flank pain for the past day. He was at [place] and left prior to all results being posted due to prolonged wait time. Patient states he was told he had a kidney stone. He is concerned it could be his appendix. Patient denies chest pain, dyspnea, fevers, urinary symptoms. Patient does not have his test results and he does not have access to his EMR online. Home Medications Medication Instructions Recorded Confirmed Type aspirin 81 mg tablet,delayed 81 mg PO QAM 07/27/20 12/06/24 History release nitroglycerin 0.4 mg sublingual 0.4 mg sublingual UD PRN Chest Pain 07/27/20 12/06/24 History tablet (Nitrostat) cholecalciferol (vitamin D3) 50 50 mcg PO QAM 12/07/20 12/06/24 History mcg (2,000 unit) capsule dorzolamide 2 % eye drops 1 drp ophthalmic (eye) BID 12/07/20 12/06/24 History latanoprost 0.005 % eye drops 1 drp ophthalmic (eye) HS 12/07/20 12/06/24 History lisinopril 10 mg tablet 10 mg PO BID 12/07/20 12/06/24 History metformin 1,000 mg tablet 1,000 mg PO BID 12/07/20 12/06/24 History metoprolol tartrate 25 mg tablet 25 mg PO BID 12/07/20 12/06/24 History docusate sodium 100 mg capsule 100 mg PO Q OTHER DAY 06/13/21 12/06/24 History (Colace) atorvastatin 40 mg tablet 40 mg PO QPM 01/11/22 12/06/24 History Allergies Allergy/AdvReac Type Severity Reaction Status Date / Time azithromycin Allergy Mild Rash Verified 07/23/24 11:10 amoxicillin Allergy Verified 07/23/24 11:10 latanoprost [From Xalatan] AdvReac Intermediate XALATAN - Verified 07/17/23 09:33 Blood Shot Eyes Past Med/Surg History Problem List (Updated 12/06/24 @ 03:02 by Haylie M Mark, PA-C) Ureterolithiasis (Acute) Renal colic on right side (Acute) Rectal bleeding REASON FOR UPCOMING PROCEDURE Elevated prostate specific antigen (PSA) Male stress incontinence Erectile dysfunction after radical prostatectomy Prostate cancer DX SEPTEMBER 2020, SX DECEMBER 2020...UROLOGY APPOINTMENT UPCOMING 06/14/21 Medical History History of colon polyps Encounter for pre-operative examination CAD (coronary artery disease) Arthritis Glaucoma Hypertension Nephrolithiasis BPH (benign prostatic hyperplasia) Diabetes Surgical History History of prostatectomy (~01/11/21) History of colonoscopy History of umbilical hernia repair History of foot surgery History of prostate biopsy H/O heart artery stent Family History Father Prostate cancer, Onset Age: 75 Family history of diabetes mellitus Mother No problems noted. Sister No problems noted. Sister No problems noted. Sister No problems noted. Son No problems noted. Daughter No problems noted. Other No family history of adverse response to anesthesia Social History Smoking Status: Never smoker packs per day: 1; Second Hand Exposure: No; Do You Dip or Chew Tobacco: No; Hx Alcohol Use: Yes Alcohol type: beer and wine Alcohol Intake Frequency: Monthly or Less Alcohol Intake Frequency Comment: Rare Occasion Hx Substance Use: No Preferred Language: Kazakh Communication Ability: Effective Visual Impairment: Limited Hearing Ability: Hard of Hearing Wine Pasteurizer Required: No Beliefs That Will Affect Care: None marital status: Current Living Situation: Significant Other current occupational status: retired 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 Feels Safe at Home: Yes Childhood Exposure to Second-Hand Smoke: No Diet: regular caffeine: Yes (1/2 pot of coffee/day ) during the past year weight has: remained stable Dental Care, Regularly: Yes Assistive Devices: Denture - Upper, Glasses and Hearing Aid - Bilateral Review of Systems A total of 10 systems reviewed and were otherwise negative Physical Exam Vital Signs Vital Signs - 24 hr 12/06/24 02:38 Temperature 36.1 C L Temperature Source Temporal Artery Scan Pulse Rate 85 Respiratory Rate 16 Blood Pressure 163/106 H Blood Pressure Mean 125 Pulse Oximetry 97 Oxygen Delivery Method Room Air Sepsis Recent Fever Within 48 Hours No Sepsis New/Unexplained Change in Mental Status No Sepsis Action Taken by Nursing No Action Required VITALS: Vitals are noted on the nurse's note and reviewed by myself. Vital signs stable. GENERAL: Pleasant gentleman, in no acute distress, nondiaphoretic, well- developed well-nourished. SKIN: Capillary reflex less than 2 seconds. HEENT: Normocephalic. PERRLA. EOMI. Nares patent. Mucous membranes moist. Neck is supple without nuchal rigidity. HEART: Regular rate and rhythm LUNGS: Clear to auscultation bilaterally without wheezes, rales or rhonchi. No retractions or accessory muscle use. ABDOMEN: Positive bowel sounds x 4. Normal tympanic percussion. Soft, tender to palpation right lower quadrant, without masses or organomegaly. Bradshaw sign negative. No guarding or rebound tenderness. no CVA tenderness MUSCULOSKELETAL: No gross musculoskeletal defects. NEURO: Patient was alert and oriented to person place and time. No focal neurological deficits. Course Administered Medications Discontinued Medications Acetaminophen (Ofirmev) 1,000 mg in 100 mls @ 400 mls/hr IV NOW STA Stop: 12/06/24 03:02 Last Infusion: 12/06/24 03:21 Dose: Infused Documented By: Admin: 12/06/24 03:00 Dose: 400 mls/hr Documented By: CURLY Ondansetron HCl (Ondansetron Inj 2 Mg/Ml 2 Ml Vial) 4 mg IV NOW STA Stop: 12/06/24 02:49 Last Admin: 12/06/24 03:00 Dose: 4 mg Documented By: CURLY Medical Decision Making Medical Records Attestation: I reviewed the patient's medical records. Home Medications Current Medication List: was personally reviewed by me Laboratory Data Attestation: I reviewed the patient's lab results. 12/06/24 02:48 12/06/24 02:48 Lab Results 12/06/24 12/06/24 Range/Units 02:48 02:50 WBC 9.36 (4.8-10.8) K/ul RBC 5.22 (4.70-6.10) M/uL Hgb 16.4 (14.0-18.0) g/dl Hct 47.9 (42.0-52.0) % MCV 91.8 (80.0-100.0) fL MCH 31.4 (25.0-34.0) pg MCHC 34.2 (32.0-36.0) g/dL RDW Std Deviation 43.5 (36.4-46.3) fL RDW Coeff of Erasmo 12.9 (11.5-14.5) % Plt Count 164 (130-400) K/uL MPV 10.5 (9.4-12.4) fL Immature Gran % (Auto) 0.5 % Neut % (Auto) 73.0 % Lymph % (Auto) 17.3 % [place] % (Auto) 7.3 % Eos % (Auto) 1.7 % Baso % (Auto) 0.2 % Neut # (Auto) 6.83 H (1.40-6.50) K/uL Lymph # (Auto) 1.62 (1.20-3.40) K/uL [place] # (Auto) 0.68 H (0.11-0.59) K/uL Eos # (Auto) 0.16 (0.00-0.50) K/uL Baso # (Auto) 0.02 (0.00-0.20) K/uL Immature Gran # (Auto) 0.05 (0.01-0.20) K/uL Sodium 138 (136-145) mmol/L Potassium 4.4 (3.5-5.1) mmol/L Chloride 107 (98-107) mmol/L Carbon Dioxide 23 (21-32) mmol/L Anion Gap 8 (3-11) BUN 23 (6-23) mg/dl Creatinine 1.03 (0.6-1.4) mg/dl Est Cr Clr Drug Dosing 78.8 ml/min eGFR 77.66 BUN/Creatinine Ratio 22.3 H (10-20) Glucose 182 H (70-99(Fasting)) mg/dl Calcium 9.2 (8.6-10.3) mg/dl Total Bilirubin 0.3 (0.2-1.0) mg/dl AST 14 (13-39) U/L ALT 18 (7-52) U/L Alkaline Phosphatase 101 (34-104) U/L Total Protein 6.8 (6.0-8.3) gm/dl Albumin 4.0 (3.4-5.0) gm/dl Globulin 2.8 (2.5-4.0) gm/dl Albumin/Globulin Ratio 1.4 (0.9-2) Lipase 37 (11-82) U/L Urine Color Yellow Urine Appearance Clear (Clear) Urine pH 5.0 (4.5-7.5) Ur Specific [place] 1.026 (1.000-1.030) Urine Protein Trace H (Negative) Urine Glucose (UA) Negative (Negative) Urine Ketones Trace H (Negative) Urine Blood 2+ H (Negative) Urine Nitrite Negative (Negative) Urine Bilirubin Negative (Negative) Urine Urobilinogen Negative (Negative) Ur Leukocyte Esterase Negative (Negative) Urine WBC (Auto) 0-5 (0-5) /hpf Urine RBC (Auto) 6-10 H (0-2) /hpf U Hyaline Cast (Auto) 0-2 (0-2) /lpf U Epithel Cells (Auto) 0-2 (0-2) /hpf Urine Bacteria (Auto) None Seen (None Seen) Urine Comment Imaging Data Attestation: I personally reviewed and interpreted this imaging study as follows: MDM Narrative Prior records/ancillary studies reviewed. Triage Nursing notes reviewed. Additional history obtained from the nursing The patient's history was concerning for flank pain. Differential diagnosis: Etiologies such as renal colic, appendicitis, diverticulitis, mesenteric ischemia, aortic pathology, infections, inflammatory bowel disease, PUD, biliary pathology, UTI, as well as others were entertained. Physical examination findings: As above. ER treatment provided: I requested the records from [place] and did review them. Patient was able to access his EMR online I did review the CAT scan and laboratory testing. Tylenol and Zofran were ordered On reassessment the patient felt better. Diagnostic interpretation by me: The labs Independently Interpreted by myself revealed no worrisome leukocytosis. Urinalysis revealed hematuria. There was no sign of UTI. Imaging studies: Imaging was reviewed and read by radiology-CT done at [place] shows a 6 mm obstructing stone on the right side. Consultation: A consultation was placed with the hospitalist. The case was discussed and diagnostics were reviewed. The patient was evaluated in the ER for further treatment. It appears that the patient has isolated renal colic from a right sided stone. Patient was still in a moderate amount of pain. He is requesting admission. Medicine was consulted the case was discussed. He will be evaluated for admission. By the evaluation outlined above emergent etiologies such as appendicitis, diverticulitis, mesenteric ischemia, aortic pathology, infections, inflammatory bowel disease, PUD, biliary pathology, UTI, as well as others were deemed relatively unlikely. The pt informed about the findings as listed above. All questions were answered and pleased with the treatment. The chart was completed utilizing [employer] Speech voice recognition software. Grammatical errors, random word insertions, pronoun errors, and incomplete sentences are an occassional consequence of this system due to software limitations, ambient noise, and hardware issues. Any formal questions or concerns about the content, text, or information contained within the body of this dictation should be directly addressed to the physician promotions assistant sales marketing for clarification. Impression & Plan Renal colic on right side, Ureterolithiasis Discharge Plan Visit Data Chief Complaint: Flank Pain Stated Complaint: STOMACH PAIN, SIDE PAIN ED Provider: Ekaterina Rosen ED Midlevel Provider: Haylie Folres Discharge Problem: Renal colic on right side, Ureterolithiasis Patient Disposition: Admitted As Inpatient Condition: Good Forms Stand Alone Forms: [employer] Prescriptions Prescriptions: No Action metformin 1,000 mg tablet 1,000 mg PO BID cholecalciferol (vitamin D3) 50 mcg (2,000 unit) capsule 50 mcg PO QAM Patient Comments: 3000 IU docusate sodium [Colace] 100 mg capsule 100 mg PO Q OTHER DAY Patient Comments: takes in the am Rx Instructions: Take twice daily for 2 weeks, then as needed for constipation. aspirin 81 mg tablet,delayed release (DR/EC) 81 mg PO QAM nitroglycerin [Nitrostat] 0.4 mg tablet, sublingual 0.4 mg sublingual UD PRN (Reason: Chest Pain) Patient Comments: NEVER USED IT Rx Instructions: do not exceed 3 doses per episode dorzolamide 2 % drops 1 drp ophthalmic (eye) BID Rx Instructions: morning and afternoon lisinopril 10 mg tablet 10 mg PO BID metoprolol tartrate 25 mg tablet 25 mg PO BID latanoprost 0.005 % drops 1 drp ophthalmic (eye) HS Patient Comments: 1 DROP BOTH EYES Rx Instructions: NOT XALATAN brand atorvastatin 40 mg Tablet 40 mg PO QPM Referrals Referrals: Gissel Malave MD [Primary Care Provider] -
--- NOTE | 2024-12-06 02:59 | Emergency Department Note ---
ED Visit Note I was consulted by the Advanced Practice Provider, Haylie Flores PA-C. I performed a substantive portion of the visit. This includes aspects of: History: Patient is a 69-year-old male presenting with right sided flank pain. Patient reportedly was at [facility] emergency room tonight and was told he was diagnosed with a kidney stone. However, he states that he was still waiting to have his results discussed with him and decided to come here. He reports nausea and vomiting. MDM: CT imaging from [place] was obtained and reviewed. Patient is noted to have a 6 mm obstructing stone on the right side. Patient still having significant quirino of pain. Patient will be admitted to inpatient hospitalist service for urology consultation. .
[2024-12-06] MEDS: ACETAMINOPHEN 1,000 MG/100 ML VIAL IV STA (03:00)
[2024-12-06] MEDS: ONDANSETRON INJ 2 MG/ML 2 ML VIAL IV STA (03:00)
[2024-12-06 03:07] LABS: Basophils # (auto) 0.02 K/uL (0.00-0.20); Basophils % (auto) 0.2 %; Eosinophils # (auto) 0.16 K/uL (0.00-0.50); Eosinophils % (auto) 1.7 %; Hematocrit (blood only) 47.9 % (42.0-52.0); Hemoglobin 16.4 g/dl (14.0-18.0); Immature Granulocytes # (auto) 0.05 K/uL (0.01-0.20); Immature Granulocytes % (auto) 0.5 %; Lymphocytes # (auto) 1.62 K/uL (1.20-3.40); Lymphocytes % (auto) 17.3 %; Mean Corpuscular Hemoglobin 31.4 pg (25.0-34.0); Mean Corpuscular Hgb Conc 34.2 g/dL (32.0-36.0); Mean Corpuscular Volume 91.8 fL (80.0-100.0); Mean Platelet Volume 10.5 fL (9.4-12.4); Monocytes # (auto) 0.68 K/uL (0.11-0.59); Monocytes % (auto) 7.3 %; Neutrophils # (auto) 6.83 K/uL (1.40-6.50); Platelet Count 164 K/uL (130-400); RDW Coefficient of Variation 12.9 % (11.5-14.5); RDW Standard Deviation 43.5 fL (36.4-46.3); Red Blood Count 5.22 M/uL (4.70-6.10); White Blood Count 9.36 K/ul (4.8-10.8)
[2024-12-06 03:08] LABS: Appearance Urine Clear (Clear); Bacteria Urine Automated None Seen (None Seen); Bilirubin Urine Negative (Negative); Blood Urine 2+ (Negative); Cast Urine Automated 0-2 /lpf (0-2); Color Urine Yellow; Epithelial Cell Urine Auto 0-2 /hpf (0-2); Glucose Urine UA Negative (Negative); Ketones Urine Trace (Negative); Leukocyte Esterase Urine Negative (Negative); Nitrite Urine Negative (Negative); Protein Urine Trace (Negative); Specific Gravity Urine 1.026 (1.000-1.030); Urobilinogen Urine Negative (Negative); WBC Urine Automated 0-5 /hpf (0-5)
[2024-12-06 03:24] LABS: Albumin Globulin Ratio 1.4 (0.9-2); BUN Creatinine Ratio 22.3 (10-20); Bilirubin,Total 0.3 mg/dl (0.2-1.0); Calcium 9.2 mg/dl (8.6-10.3); Creatinine Clr Calc Pharmacy 78.8 ml/min; Globulin 2.8 gm/dl (2.5-4.0); Potassium 4.4 mmol/L (3.5-5.1); Total Protein 6.8 gm/dl (6.0-8.3)
--- NOTE | 2024-12-06 03:35 | History & Physical Report ---
Date of Service December 06, 2024 Assessment & Plan (1) Ureterolithiasis: (2) Hypertension: (3) Diabetes: (4) CAD (coronary artery disease): Plan 69-year-old male presenting with several days of intermittent nausea and right flank pain. Found to have an obstructing renal stone at an outside facility on 12/03/2024. Patient with similar pain at present. #Ureterolithiasis Admit to medical Keep n.p.o. Will give 1 L LR bolus now and continue fluids at 125 mL/h for additional liter Flomax 0.4 mg given now, will continue daily Urine strainer Zofran as needed for nausea Tylenol as needed for pain. Will escalate if needed. Presently patient not experiencing any pain Urology consult appreciated Will defer repeat CT for now #Hypertensionblood pressure mildly elevated present Pain control Continue metoprolol 25 mg p.o. twice daily Can hold lisinopril 10 mg p.o. twice daily Continue to monitor #Diabetesblood sugar mildly elevated at present. Patient is compliant with his home metformin Hold metformin Will treat with insulin sliding scale for now as patient n.p.o., only on oral metformin at home Goal blood sugar 110-180 #Coronary artery diseasepatient denies chest pain Hold aspirin for now Continue atorvastatin 40 mg p.o. every afternoon Continue metoprolol 25 mg p.o. twice daily Holding lisinopril for now History of Present Illness Chief Complaint: right flank pain Primary Care Provider: Gissel Malave MD William Cruz is a 69-year-old male with history of hypertension, diabetes, BPH and coronary artery disease presenting with right flank pain. Starting on 12/03/2024 patient began developing waves of nausea. Later in the day he developed right sided back pain with radiation into the groin. He was seen in the emergency room at [facility] and had a CT of the abdomen performed which revealed a 6 mm obstructing stone in the right ureter at the level of the pelvic inlet with associated right-sided hydronephrosis and hydroureter. Urinalysis did not suggest infection. Due to exceptionally long wait times patient did leave AGAINST MEDICAL ADVICE And returned home. Overall, he felt well on 12/04 and 12/05. Earlier this morning around 1230 he developed recurrence of nausea and right sided flank pain which prompted him to return to the ER. Patient afebrile, hemodynamically stable. Having some mild flank pain at present otherwise no complaints. ER course: Tylenol, Zofran, Flomax Allergies Allergy/AdvReac Type Severity Reaction Status Date / Time azithromycin Allergy Mild Rash Verified 07/23/24 11:10 amoxicillin Allergy Verified 07/23/24 11:10 latanoprost [From Xalatan] AdvReac Intermediate XALATAN - Verified 07/17/23 09:33 Blood Shot Eyes Home Medications Medication Instructions Recorded Confirmed Type aspirin 81 mg tablet,delayed 81 mg PO QAM 07/27/20 12/06/24 History release nitroglycerin 0.4 mg sublingual 0.4 mg sublingual UD PRN Chest Pain 07/27/20 12/06/24 History tablet (Nitrostat) cholecalciferol (vitamin D3) 50 50 mcg PO QAM 12/07/20 12/06/24 History mcg (2,000 unit) capsule dorzolamide 2 % eye drops 1 drp ophthalmic (eye) BID 12/07/20 12/06/24 History latanoprost 0.005 % eye drops 1 drp ophthalmic (eye) HS 12/07/20 12/06/24 History lisinopril 10 mg tablet 10 mg PO BID 12/07/20 12/06/24 History metformin 1,000 mg tablet 1,000 mg PO BID 12/07/20 12/06/24 History metoprolol tartrate 25 mg tablet 25 mg PO BID 12/07/20 12/06/24 History docusate sodium 100 mg capsule 100 mg PO Q OTHER DAY 06/13/21 12/06/24 History (Colace) atorvastatin 40 mg tablet 40 mg PO QPM 01/11/22 12/06/24 History Past Med/Surg History Problem List Ureterolithiasis (Acute) Renal colic on right side (Acute) Rectal bleeding REASON FOR UPCOMING PROCEDURE Elevated prostate specific antigen (PSA) Male stress incontinence Erectile dysfunction after radical prostatectomy Prostate cancer DX SEPTEMBER 2020, SX DECEMBER 2020...UROLOGY APPOINTMENT UPCOMING 06/14/21 Medical History History of colon polyps Encounter for pre-operative examination CAD (coronary artery disease) 09/2015 > stent x1 10/2015 > stents x2 Follows with [facility] Arthritis LOWER BACK Glaucoma Hypertension Nephrolithiasis HX BPH (benign prostatic hyperplasia) Diabetes NIDDM Surgical History History of prostatectomy (~01/11/21) History of colonoscopy History of umbilical hernia repair History of foot surgery R/L (d/t industrial accident/feet were crushed)- 1970 History of prostate biopsy 10/26/20 H/O heart artery stent 09/2015 > stent x1 10/2015 > stents x2 [facility] Family History Father , Passed age 91 of natural causes Prostate cancer, Onset Age: 75 TURBT?? Then later had to have catheter placed Family history of diabetes mellitus Mother , Passed age 42 of cardiac disorder No problems noted. Sister No problems noted. Sister No problems noted. Sister No problems noted. Son No problems noted. Daughter No problems noted. Other No family history of adverse response to anesthesia Social History Smoking Status: Never smoker packs per day: 1; Second Hand Exposure: No; Do You Dip or Chew Tobacco: No; Hx Alcohol Use: Yes Alcohol type: beer and wine Alcohol Intake Frequency: Monthly or Less Alcohol Intake Frequency Comment: Rare Occasion Hx Substance Use: No Preferred Language: Kazakh Communication Ability: Effective Visual Impairment: Limited Hearing Ability: Hard of Hearing Administrative Processor Required: No Beliefs That Will Affect Care: None marital status: Current Living Situation: Significant Other current occupational status: retired current occupation: Retired [employer] Feels Safe at Home: Yes Childhood Exposure to Second-Hand Smoke: No Diet: regular caffeine: Yes (1/2 pot of coffee/day ) during the past year weight has: remained stable Dental Care, Regularly: Yes Assistive Devices: Denture - Upper, Glasses and Hearing Aid - Bilateral Review of Systems Review of Systems: All systems reviewed & are unremarkable except as noted in HPI & below Physical Exam Physical Exam: General: patient resting comfortably, NAD, non-toxic in appearance, AA&O x 4 Skin: warm, dry, intact, no rashes or lesions HEENT: NC/AT, PERRL, EOMI, anicteric sclera, conjunctiva without injection, external ear normal to inspection and nontender, nares patent, moist mucus membranes, dentition intact, no oropharyngeal lesions, neck supple, trachea midline, no LAD, no thyromegaly, no JVD Heart: +S1/S2, regular, no m/r/g Lungs: equal air entry bilaterally, no rales/rhonchi/wheezes Abd: +BS, soft, NT/ND, no masses/organomegaly/ascites Ext: warm, 2+ pulses in UE/LE bilaterally, no clubbing/cyanosis or edema Neuro: nonfocal, patient AA&O x 4, speech intact, no facial droop, moving all extremities on command with equal strength 5/5 Results & Data Results & Data Vital Signs (Past 12 Hours) Vital Signs Temp Pulse Resp BP Pulse Ox O2 Del Method 12/06/24 02:38 36.1 C L 85 16 163/106 H 97 Room Air Laboratory Results Laboratory Results WBC 9.36 K/ul (4.8-10.8) 12/06/24 02:48 RBC 5.22 M/uL (4.70-6.10) 12/06/24 02:48 Hgb 16.4 g/dl (14.0-18.0) 12/06/24 02:48 Hct 47.9 % (42.0-52.0) 12/06/24 02:48 MCV 91.8 fL (80.0-100.0) 12/06/24 02:48 MCH 31.4 pg (25.0-34.0) 12/06/24 02:48 MCHC 34.2 g/dL (32.0-36.0) 12/06/24 02:48 RDW Std Deviation 43.5 fL (36.4-46.3) 12/06/24 02:48 RDW Coeff of Erasmo 12.9 % (11.5-14.5) 12/06/24 02:48 Plt Count 164 K/uL (130-400) 12/06/24 02:48 MPV 10.5 fL (9.4-12.4) 12/06/24 02:48 Immature Gran % (Auto) 0.5 % 12/06/24 02:48 Neut % (Auto) 73.0 % 12/06/24 02:48 Lymph % (Auto) 17.3 % 12/06/24 02:48 [place] % (Auto) 7.3 % 12/06/24 02:48 Eos % (Auto) 1.7 % 12/06/24 02:48 Baso % (Auto) 0.2 % 12/06/24 02:48 Neut # (Auto) 6.83 K/uL (1.40-6.50) H 12/06/24 02:48 Lymph # (Auto) 1.62 K/uL (1.20-3.40) 12/06/24 02:48 [place] # (Auto) 0.68 K/uL (0.11-0.59) H 12/06/24 02:48 Eos # (Auto) 0.16 K/uL (0.00-0.50) 12/06/24 02:48 Baso # (Auto) 0.02 K/uL (0.00-0.20) 12/06/24 02:48 Immature Gran # (Auto) 0.05 K/uL (0.01-0.20) 12/06/24 02:48 Sodium 138 mmol/L (136-145) 12/06/24 02:48 Potassium 4.4 mmol/L (3.5-5.1) 12/06/24 02:48 Chloride 107 mmol/L (98-107) 12/06/24 02:48 Carbon Dioxide 23 mmol/L (21-32) 12/06/24 02:48 Anion Gap 8 (3-11) 12/06/24 02:48 BUN 23 mg/dl (6-23) 12/06/24 02:48 Creatinine 1.03 mg/dl (0.6-1.4) 12/06/24 02:48 Est Cr Clr Drug Dosing 78.8 ml/min 12/06/24 02:48 eGFR 77.66 12/06/24 02:48 BUN/Creatinine Ratio 22.3 (10-20) H 12/06/24 02:48 Glucose 182 mg/dl (70-99(Fasting)) H 12/06/24 02:48 Calcium 9.2 mg/dl (8.6-10.3) 12/06/24 02:48 Total Bilirubin 0.3 mg/dl (0.2-1.0) 12/06/24 02:48 AST 14 U/L (13-39) 12/06/24 02:48 ALT 18 U/L (7-52) 12/06/24 02:48 Alkaline Phosphatase 101 U/L (34-104) 12/06/24 02:48 Total Protein 6.8 gm/dl (6.0-8.3) 12/06/24 02:48 Albumin 4.0 gm/dl (3.4-5.0) 12/06/24 02:48 Globulin 2.8 gm/dl (2.5-4.0) 12/06/24 02:48 Albumin/Globulin Ratio 1.4 (0.9-2) 12/06/24 02:48 Lipase 37 U/L (11-82) 12/06/24 02:48 Urine Color Yellow 12/06/24 02:50 Urine Appearance Clear (Clear) 12/06/24 02:50 Urine pH 5.0 (4.5-7.5) 12/06/24 02:50 Ur Specific [place] 1.026 (1.000-1.030) 12/06/24 02:50 Urine Protein Trace (Negative) H 12/06/24 02:50 Urine Glucose (UA) Negative (Negative) 12/06/24 02:50 Urine Ketones Trace (Negative) H 12/06/24 02:50 Urine Blood 2+ (Negative) H 12/06/24 02:50 Urine Nitrite Negative (Negative) 12/06/24 02:50 Urine Bilirubin Negative (Negative) 12/06/24 02:50 Urine Urobilinogen Negative (Negative) 12/06/24 02:50 Ur Leukocyte Esterase Negative (Negative) 12/06/24 02:50 Urine WBC (Auto) 0-5 /hpf (0-5) 12/06/24 02:50 Urine RBC (Auto) 6-10 /hpf (0-2) H 12/06/24 02:50 U Hyaline Cast (Auto) 0-2 /lpf (0-2) 12/06/24 02:50 U Epithel Cells (Auto) 0-2 /hpf (0-2) 12/06/24 02:50 Urine Bacteria (Auto) None Seen (None Seen) 12/06/24 02:50 Urine Comment 12/06/24 02:[address] performed at [facility]. Results reviewed on patient's phone through [facility] portal Impression: 1. No abdominal or pelvic mass, adenopathy or acute inflammatory change identified. 2. Nonobstructing right renal stone. 3. Gallstone 4. 6 mm obstructing stone in the right ureter at the level of the pelvic inlet with associated right-sided hydronephrosis and hydroureter noted Urinalysis viewed with no evidence of infection Code Status & VTE Plan VTE Prophylaxis Plan VTE Prophylaxis will be ordered: Yes PG Care Time/CCT Total # of Minutes Spent Total Time Spent with Patient: Total time spent is greater than 50% in coordination of care (as documented) at patient's floor/unit and/or counseling patient: Coding Level of Care Code 72241 INT INP/OBS CARE MIN Diagnoses Ureterolithiasis N20.1 Hypertension I10 Diabetes E11.9 CAD (coronary artery disease) I25.10
[2024-12-06] MEDS: TAMSULOSIN HCL 0.4 MG CAP PO ONE (03:40)
[2024-12-06] MEDS: KETOROLAC TROMETHAMINE 15 MG/ML VIAL IV ONE (03:40)
[2024-12-06] MEDS: LACTATED RINGER'S 1,000 ML IV ONE (03:40)
[2024-12-06] MEDS ORDERED: GLUCOSE 40% GEL 15 GM TUBE PO PRN (04:35)
[2024-12-06] MEDS ORDERED: DEXTROSE 50% 50 ML SYRINGE IV PRN (04:35)
[2024-12-06] MEDS ORDERED: GLUCAGON FOR INJ 1 MG VIAL SQ PRN (04:35)
[2024-12-06] MEDS ORDERED: ONDANSETRON INJ 2 MG/ML 2 ML VIAL IV PRN ×2 (04:35→11:55)
[2024-12-06] MEDS ORDERED: GLUCOSE 10 TAB/TUBE PO PRN (04:35)
[2024-12-06] MEDS ORDERED: CARBOHYDRATES FOR HYPOGLYCEMIA PO PRN (04:35)
[2024-12-06] MEDS ORDERED: ACETAMINOPHEN 325 MG TAB PO PRN (04:35)
[2024-12-06] MEDS: LACTATED RINGER'S 1,000 ML IV SCH (05:27)
[2024-12-06] MEDS: INSULIN ASPART PER UNIT CHARGE SC SCH ×2 (06:19→17:41)
[2024-12-06] MEDS: METOPROLOL TARTRATE 25 MG TAB PO SCH (09:32)
[2024-12-06] MEDS: DORZOLAMIDE HCL 2% OPH SOLN 10 ML BTL OP SCH (09:32)
--- NOTE | 2024-12-06 09:43 | Anesthesiology Consultation ---
Date of Service December 06, 2024 Assessment & Plan Chart Review Chart Review: Acceptable Risk for Surgery and Patient NOT seen in Pre Admission Testing History Surgery Operation Date: 12/06/24 07:50 Proposed Procedures p Cystoscopy Right Retrograde Pyelogram and Stent Placement Possible Ureteroscopy Laser Lithotripsy Stone Treatment - Mike Duran, DO Height/Weight Height: 5 ft 10 in Weight: 104.6 kg Allergies Allergy/AdvReac Type Severity Reaction Status Date / Time azithromycin Allergy Mild Rash Verified 07/23/24 11:10 amoxicillin Allergy Verified 07/23/24 11:10 latanoprost [From Xalatan] AdvReac Intermediate XALATAN - Verified 07/17/23 09:33 Blood Shot Eyes Medications Home Medications Medication Instructions Recorded Confirmed Last Taken aspirin 81 mg tablet,delayed 81 mg PO QAM 07/27/20 12/06/24 01/20/22 release nitroglycerin 0.4 mg sublingual 0.4 mg sublingual UD PRN Chest Pain 07/27/20 12/06/24 Unknown tablet (Nitrostat) cholecalciferol (vitamin D3) 50 50 mcg PO QAM 12/07/20 12/06/24 01/20/22 mcg (2,000 unit) capsule dorzolamide 2 % eye drops 1 drp ophthalmic (eye) BID 12/07/20 12/06/24 01/21/22 06:00 latanoprost 0.005 % eye drops 1 drp ophthalmic (eye) HS 12/07/20 12/06/24 01/20/22 lisinopril 10 mg tablet 10 mg PO BID 12/07/20 12/06/24 01/21/22 04:30 metformin 1,000 mg tablet 1,000 mg PO BID 12/07/20 12/06/24 01/20/22 metoprolol tartrate 25 mg tablet 25 mg PO BID 12/07/20 12/06/24 01/21/22 04:30 docusate sodium 100 mg capsule 100 mg PO Q OTHER DAY 06/13/21 12/06/24 01/18/22 (Colace) atorvastatin 40 mg tablet 40 mg PO QPM 01/11/22 12/06/24 01/20/22 Active Medications Generic Name Dose Route Start Last Admin Trade Name Freq PRN Reason Stop Dose Admin Dorzolamide HCl 1 drops 12/06/24 09:00 12/06/24 09:32 Dorzolamide Hcl 2% Oph Soln 10 Ml Btl OP 01/05/25 08:59 1 drops BID AMANDA Administration Lactated Ringer's 1,000 mls @ 125 mls/hr 12/06/24 04:35 12/06/24 05:27 Lr IV 12/06/24 12:34 125 mls/hr .Q8H AMANDA Administration Insulin Aspart 0 units 12/06/24 06:00 12/06/24 06:19 Insulin Aspart Per Unit Charge SC 01/05/25 05:59 2 units Q6 AMANDA Administration Metoprolol Tartrate 25 mg 12/06/24 09:00 12/06/24 09:32 Metoprolol Tartrate 25 Mg Tab PO 01/05/25 08:59 25 mg BID AMANDA Administration Past Medical History Medical History History of colon polyps Encounter for pre-operative examination CAD (coronary artery disease) 09/2015 > stent x1 10/2015 > stents x2 Follows with [facility] Arthritis LOWER BACK Glaucoma Hypertension Nephrolithiasis HX BPH (benign prostatic hyperplasia) Diabetes NIDDM Past Family History Family History Father , Passed age 91 of natural causes Prostate cancer, Onset Age: 75 TURBT?? Then later had to have catheter placed Family history of diabetes mellitus Mother , Passed age 42 of cardiac disorder No problems noted. Sister No problems noted. Sister No problems noted. Sister No problems noted. Son No problems noted. Daughter No problems noted. Other No family history of adverse response to anesthesia Past Surgical History Surgical History History of prostatectomy (~01/11/21) History of colonoscopy History of umbilical hernia repair History of foot surgery R/L (d/t industrial accident/feet were crushed)- 1970 History of prostate biopsy 10/26/20 H/O heart artery stent 09/2015 > stent x1 10/2015 > stents x2 [facility] Social History Smoking Status: Never smoker tobacco type: cigarettes Do You Dip or Chew Tobacco: No Hx Alcohol Use: No Alcohol type: beer and wine alcohol intake frequency: holidays/special occasions only Hx Substance Use: No substance use type: does not use Physical Exam Vital Signs Last Vital Signs Temp 36.6 C 12/06/24 07:46 Pulse 79 12/06/24 09:34 Resp 16 12/06/24 07:46 BP 129/78 12/06/24 09:34 Pulse Ox 97 12/06/24 09:34 O2 Del Method Room Air 12/06/24 09:34 Testing Laboratory Results 12/06/24 02:48 12/06/24 02:48 Urine Color Yellow 12/06/24 02:50 Urine Appearance Clear (Clear) 12/06/24 02:50 Urine pH 5.0 (4.5-7.5) 12/06/24 02:50 Ur Specific [place] 1.026 (1.000-1.030) 12/06/24 02:50 Urine Protein Trace (Negative) H 12/06/24 02:50 Urine Glucose (UA) Negative (Negative) 12/06/24 02:50 Urine Ketones Trace (Negative) H 12/06/24 02:50 Urine Nitrite Negative (Negative) 12/06/24 02:50 Ur Leukocyte Esterase Negative (Negative) 12/06/24 02:50 Urine WBC (Auto) 0-5 /hpf (0-5) 12/06/24 02:50 Urine RBC (Auto) 6-10 /hpf (0-2) H 12/06/24 02:50 U Hyaline Cast (Auto) 0-2 /lpf (0-2) 12/06/24 02:50 U Epithel Cells (Auto) 0-2 /hpf (0-2) 12/06/24 02:50 Urine Bacteria (Auto) None Seen (None Seen) 12/06/24 02:50 12/06/24 06:02 POC Glucose 188 H
--- NOTE | 2024-12-06 10:37 | Urology Consultation ---
Date of Consultation December 06, 2024 Assessment & Plan (1) Ureterolithiasis: Plan 69 year old male who was seen in the ED at [facility] and had a CT abdomen pelvis which revealed a 6 mm obstructing stone in the right ureter. Per notes, due to exceptionally long wait times the patient did leave AMA and returned home. He reports that he felt well over the weekend but earlier this morning developed recurrence of nausea and right sided pain which prompted his arrival to [facility] ED. He is admitted to medicine service. Discussed option for acute stone management with cystoscopy, stent placement, possible stone treatment depending on findings. Stone free rates were also discussed as well as possibility of multiple procedures. Ureteral stents were discussed as well as post-operative issues and pain management. Risks/benefits reviewed. All questions were answered. Will proceed to OR today for cystoscopy, right retrograde pyelogram, right ureteral stent placement, possible ureteroscopy, laser lithotripsy/stone treatment depending on findings. Risks and benefits to be reviewed with patient by Dr. Duran. Keep NPO. Will cover with Cipro preoperatively. Urology will follow. Attending note: Patient with stone. History of prostate cancer treated with prostatectomy in 2020. Patient had developed significant and severe flank pain going down to the groin. Pain comes in waves goes down to the groin is severe in nature. Patient independently assessed, examined, interviewed, and evaluated. Agree with note as above. Patient's vitals and labs were all reviewed. Pertinent values in the HPI and plan section. Patient's PSA was rechecked on this admission. Came back undetectable. Patient had undergone prostatectomy in 2020. Patient's creatinine came back at 1.03. White count 9.36. Hemoglobin was 16.4. Patient had imaging completed with CT scan at outlying facility. Imaging was reviewed interpreted by myself. Stone appears to be within the mid to distal ureter with significant right-sided hydronephrosis with significant obstruction on the right. Stone measuring approximately 6 mm. Agree with read from outlying facility. Additionally on my review patient does appear to have stone up in the right kidney. Stone in the kidney approximately 4 to 5 mm in size. No major signs of obstruction on the left. Possible cystic structure versus other abnormality in the left kidney. Vitals were reviewed. Blood pressure was 127/91 pulse 72 respirations 20 temp is 36.5 with no fever over the last 24 hours. Oxygen saturation was 93% on room air. Discussed findings extensively with patient and family. Reviewed with nurse practitioner as well as consulting physicians/team. Patient's complicated medical and surgical history was reviewed and summarized above. Patient's surgical, medical, social, and family history were all reviewed with p ertinent values as above. Discussed patient's current diagnosis as well as concerns and issues. Reviewed different options moving forward. Discussed potential risks and benefits as well as possible options and concerns. Reviewed potential surgical options and interventions. Discussed potential issues and concerns related to intervention. Risk and benefits were discussed extensively with patient and any available family. Discussed potential risks related to anesthesia. Discussed risks of bleeding infection and injury. Discussed options for conservative measure and maximum expulsion medical therapy and symptom controlled. Discussed ESWL. Discussed Ureteroscopy with extraction and/or laser lithotripsy. Risks and benefits were discussed. Stone free rates were also discussed as well as possibility of multiple procedures. Ureteral stents were discussed as well as post-operative issues and pain management. All questions were answered. Risks and benefits discussed at length for procedure. These include bleeding, infection, injury to surrounding tissues or organs, and risks associated with anesthesia. Patient states understanding and agrees to proceed. Will sign consent and proceed. Plan to move forward with cystoscopy and right ureteroscopy and laser lithotripsy and stone extraction. History of Present Illness Attending Physician: Cassie Mullen MD History of Present Illness 69 year old male with a history of prostate cancer status post prostatectomy who presented to the ED with right sided flank pain. Patient reports that his symptoms started on Sunday 12/03 with waves of nausea and later developing right- sided pain. He was seen in the emergency room at [facility] and had a CT abdomen pelvis which revealed a 6 mm obstructing stone in the right ureter. Per notes, due to exceptionally long wait times the patient did leave AMA and returned home. He reports that he felt well over the weekend but earlier this morning developed recurrence of nausea and right sided pain which prompted his arrival to [facility] ED. He is admitted to medicine service. He is afebrile and hemodynamically stable. Labs show no leukocytosis and normal renal function. Urinalysis with 2+ blood, negative nitrite, negative LE, negative bacteria. Patient was seen at bedside this morning. He is awake and resting in bed on arrival. No acute distress. Has been NPO. Pain is currently well-controlled. He denies any noticeable stone passage. No fevers. Allergies Allergy/AdvReac Type Severity Reaction Status Date / Time azithromycin Allergy Mild Rash Verified 07/23/24 11:10 amoxicillin Allergy Verified 07/23/24 11:10 latanoprost [From Xalatan] AdvReac Intermediate XALATAN - Verified 07/17/23 09:33 Blood Shot Eyes Home Medications Medication Instructions Recorded Confirmed Type aspirin 81 mg tablet,delayed 81 mg PO QAM 07/27/20 12/06/24 History release nitroglycerin 0.4 mg sublingual 0.4 mg sublingual UD PRN Chest Pain 07/27/20 12/06/24 History tablet (Nitrostat) cholecalciferol (vitamin D3) 50 50 mcg PO QAM 12/07/20 12/06/24 History mcg (2,000 unit) capsule dorzolamide 2 % eye drops 1 drp ophthalmic (eye) BID 12/07/20 12/06/24 History latanoprost 0.005 % eye drops 1 drp ophthalmic (eye) HS 12/07/20 12/06/24 History lisinopril 10 mg tablet 10 mg PO BID 12/07/20 12/06/24 History metformin 1,000 mg tablet 1,000 mg PO BID 12/07/20 12/06/24 History metoprolol tartrate 25 mg tablet 25 mg PO BID 12/07/20 12/06/24 History docusate sodium 100 mg capsule 100 mg PO Q OTHER DAY 06/13/21 12/06/24 History (Colace) atorvastatin 40 mg tablet 40 mg PO QPM 01/11/22 12/06/24 History Patient History Medical History History of colon polyps Encounter for pre-operative examination CAD (coronary artery disease) 09/2015 > stent x1 10/2015 > stents x2 Follows with [facility] Arthritis LOWER BACK Glaucoma Hypertension Nephrolithiasis HX BPH (benign prostatic hyperplasia) Diabetes NIDDM Surgical History History of prostatectomy (~01/11/21) History of colonoscopy History of umbilical hernia repair History of foot surgery R/L (d/t industrial accident/feet were crushed)- 1970 History of prostate biopsy 10/26/20 H/O heart artery stent 09/2015 > stent x1 10/2015 > stents x2 [facility] Family History Father , Passed age 91 of natural causes Prostate cancer, Onset Age: 75 TURBT?? Then later had to have catheter placed Family history of diabetes mellitus Mother , Passed age 42 of cardiac disorder No problems noted. Sister No problems noted. Sister No problems noted. Sister No problems noted. Son No problems noted. Daughter No problems noted. Other No family history of adverse response to anesthesia Social History Smoking Status: Never smoker packs per day: 1; Second Hand Exposure: No; Do You Dip or Chew Tobacco: No; Hx Alcohol Use: No Hx Substance Use: No Preferred Language: Armenian Communication Ability: Effective Visual Impairment: Limited Hearing Ability: Hard of Hearing Deputy Jailer Required: No Beliefs That Will Affect Care: None marital status: Current Living Situation: Alone current occupational status: retired current occupation: Retired [employer] Feels Safe at Home: Yes Childhood Exposure to Second-Hand Smoke: No Diet: regular caffeine: Yes (1/2 pot of coffee/day ) during the past year weight has: remained stable Dental Care, Regularly: Yes Assistive Devices: Denture - Upper, Glasses and Hearing Aid - Bilateral Review of Systems Review of Systems: All systems reviewed & are unremarkable except as noted in HPI & below Physical Exam Physical Exam: General: Alert and oriented x 3 in no acute distress. Patient is well nourished and well kept. HEENT: Normocephalic Atraumatic. Inspection normal. Cranial Nerves 2-12 Grossly intact. Nares are clear. Neck is supple. Normal inspection of face. Normal inspection of neck. Neurologic: No deficits on inspection. Baseline for motor function and sensory. Psychologic: Normal affect. Respiratory: Nonlabored. No use of accessory muscles. No tachypnea or dyspnea. Cardiovascular: No tachycardia Skin: [place] and Dry. No rashes or visible lesions. Extremities: Moving without issues. No motor deficits on inspection Lymphatics: No edema Abdomen: Soft Non-distended. No rebound or guarding. Constitutional: well developed and well nourished; no acute distress Respiratory: normal respiratory effort; no respiratory distress and no labored breathing Musculoskeletal: Head/Neck/Chest: normocephalic Skin: No visible rashes or lesions to exposed skin areas Neurologic: moves all extremities and awake Psychiatric: A+Ox3, euthymic affect Results & Data Vital Signs (Past 12 Hours) Vital Signs Temp Pulse Pulse Pulse Resp BP BP 12/06/24 09:34 79 129/78 12/06/24 07:46 36.6 C 78 16 110/67 12/06/24 04:35 36 C L 77 16 142/84 H 12/06/24 04:35 36 C L 77 16 142/84 H 12/06/24 04:02 12/06/24 04:00 85 18 138/96 12/06/24 03:40 85 18 12/06/24 02:38 36.1 C L 85 16 163/106 H Pulse Ox O2 Del Method 12/06/24 09:34 97 Room Air 12/06/24 07:46 96 Room Air 12/06/24 04:35 97 Room Air 12/06/24 04:35 97 Room Air 12/06/24 04:02 Room Air 12/06/24 04:00 98 Room Air 12/06/24 03:40 100 Room Air 12/06/24 02:38 97 Room Air PG Care Time/CCT Total # of Minutes Spent Total Time Spent with Patient: Total time spent is greater than 50% in coordination of care (as documented) at patient's floor/unit and/or counseling patient: Coding Level of Care Code 73150 INT INP/OBS CARE 3/75MIN Diagnoses Ureterolithiasis N20.1
[2024-12-06] MEDS: ceFAZolin 2000MG 2,000 MG/15 ML SYR IV ONE (11:18)
[2024-12-06] MEDS ORDERED: fentaNYL citrate PF 100 MCG/2 ML VIAL ONE (11:42)
[2024-12-06] MEDS ORDERED: ATROPINE SULFATE 0.1 MG/ML 10ML SYR IV PRN (11:55)
[2024-12-06] MEDS ORDERED: HYDROmorphone INJ 1 MG/ML SYRINGE IV PRN (11:55)
[2024-12-06] MEDS ORDERED: fentaNYL citrate PF 100 MCG/2 ML VIAL IV PRN (11:55)
[2024-12-06] MEDS ORDERED: ePHEDrine sulfate 50 MG/ML AMP IV PRN (11:55)
[2024-12-06] MEDS: CIPROFLOXACIN / D5W 400 MG/200 ML BAG IV SCH (12:58)
[2024-12-06] MEDS ORDERED: ONDANSETRON INJ 2 MG/ML 2 ML VIAL ONE (13:04)
[2024-12-06] MEDS ORDERED: PROPOFOL IV EMULSION 10 MG/ML 20 ML VIAL IV ONE (13:04)
[2024-12-06] MEDS ORDERED: LIDOCAINE 2% 2 ML VIAL/AMP(20MG/ML) INFIL ONE (13:04)
[2024-12-06] MEDS ORDERED: DEXAMETHASONE SOD INJ 4 MG/ML VIAL ONE (13:04)
[2024-12-06] MEDS ORDERED: KETOROLAC 30 MG/ML VIAL ONE (13:05)
[2024-12-06] MEDS ORDERED: PHENYLEPHRINE 100MCG/ML 5ML SYR ONE (13:13)
--- NOTE | 2024-12-06 13:22 | Operative Report ---
PG Post Operative Report Pre & Post Diagnosis Operation Date: 12/06/24 07:50 Pre-Op Diagnosis: Obstructive right renal stone Post-Op Diagnosis: Obstructive right renal stone I identified the patient and participated in the time-out.: Yes Procedure Operation Date: 12/06/24 07:50 Actual Procedures p Cystoscopy with Right Retrograde Pyelogram, right ureteral Stent Placement, Ureteroscopy, Laser Lithotripsy, basket Stone Extraction, and ureteral dilation - Mike Duran, Surgeon Mike Duran, II, DO Smoking Pipe Mounter None Estimated Blood Loss 1 Findings Consistent with Post-Op Diagnosis Stone severely impacted in the mid to distal ureter with severe obstruction. Stricture of the distal ureter which was dilated. Additional stone up in the renal pelvis. Stones destroyed to dust and small fragments and larger fragments removed. Specimens Stone Fragments right Drains 6 Fr by 26 cm right kidney Anesthesia Type General Complications none Disposition Disposition: Recovery Room Indications Patient with bothersome stones. Risks and benefits discussed at length. Description of Procedure Patient was consented and brought back to the operating room. Patient was placed under anesthesia in the supine position and moved to the dorsal lithotomy position. Patient was prepped and draped in the regular sterile fashion. A time out was completed. A 30degree Cystoscope was placed into the bladder and the entire bladder was examined. The UO's were identified. The UO was cannulized with a catheter and a retrograde pyelogram was completed. A wire was then placed. The Rigid ureteroscope was taken into the ureter. The stone was identified. Just distal to the stone was a severe impaction site and stricture. The stone was displaced proximally and the stricture was dilated. A laser fiber was selected and the stones were pulverized to dust and small fragments. Larger fragments were grasped and removed and sent for analysis. A second wire was then placed and the rigid scope removed. The flexible scope was then taken over the second wire and advanced to the proximal ureter and renal pelvis. The entire pelvis was examined and the stones were further treated with the laser and basketed for removal. The entire area was once again examined. No residual large fragments or areas of concern were noted. The scope was slowly removed with the wire left in place. Contrast was placed through the scope for a pyelogram to assist in stent placement. The entire ureter was examined as the scope was slowly removed. No obstructions or other areas of concern were noted. With the wire in place, a 6 Fr Double J stent was placed. It was confirmed with fluoroscopy. With the stent in place, the bladder was emptied. The scope was removed. The patient was cleaned, aroused from anesthesia, and transferred to the pacu in stable condition having tolerated the procedure well with no com plications. I was present and participated in all aspects of the procedure. The patient will be monitored in the PACU until transferred. Plan to maintain stent for approximately 1 week and remove in office. I attest to the content of the Intraoperative Record and any orders documented therein. Any exceptions are noted below.
[2024-12-06] MEDS: DIATRIZOATE MEGLUMINE 30% 100ML VIAL INSTIL PRN (13:29)
--- NOTE | 2024-12-06 13:32 | Fluoroscopy Report ---
FL retrograde includes kub CLINICAL HISTORY: RIGHT STENT COMPARISON STUDY: None FLUOROSCOPY TIME: 30 seconds FLUOROSCOPY IMAGES: 4 EXPOSURE DOSE: 15 mGy FINDINGS: Fluoroscopy was provided for urologic procedure. IMPRESSION: Intraoperative fluoroscopy. ACT 112: Negative or not required by law. Electronically signed by: Lam Walker M.D. 12/06/2024 1:31 PM
--- NOTE | 2024-12-06 13:43 | Anesthesiology Progress Note ---
Date of Service December 06, 2024 Anesthesia Post Procedure Vital Signs Vital Signs: Temp Pulse Pulse Pulse Resp BP BP 12/06/24 10:39 36.5 C 72 20 127/91 12/06/24 09:34 79 129/78 12/06/24 07:46 36.6 C 78 16 110/67 12/06/24 04:35 36 C L 77 16 142/84 H 12/06/24 04:35 36 C L 77 16 142/84 H 12/06/24 04:02 12/06/24 04:00 85 18 138/96 12/06/24 03:40 85 18 12/06/24 02:38 36.1 C L 85 16 163/106 H Pulse Ox O2 Del Method 12/06/24 10:39 93 Room Air 12/06/24 09:34 97 Room Air 12/06/24 07:46 96 Room Air 12/06/24 04:35 97 Room Air 12/06/24 04:35 97 Room Air 12/06/24 04:02 Room Air 12/06/24 04:00 98 Room Air 12/06/24 03:40 100 Room Air 12/06/24 02:38 97 Room Air Transfer of Care Handoff Completed per policy Notes Mental Status: alert / awake / arousable and participated in evaluation Patient Amnestic to Procedure: Yes Nausea / Vomiting: adequately controlled Pain: adequately controlled Airway Patency, RR, SpO2: stable & adequate BP & HR: stable & adequate Hydration State: stable & adequate Anesthetic Complications: no major complications apparent and Pt Satisfied with anesthetic care
[2024-12-06] MEDS: ATORVASTATIN 40 MG TAB PO SCH (20:48)
[2024-12-06] MEDS: LATANOPROST 0.005% OP SOLN 2.5 ML BTL OP SCH (22:13)
[2024-12-07] MEDS: POLYETHYLENE (MIRALAX) 17 GM PACK PO PRN (06:36)
[2024-12-07] MEDS: Nursing to Pharmacy Communication SCH (06:52)
[2024-12-07 07:37] VITALS: O2SAT 96
[2024-12-07] MEDS: TAMSULOSIN HCL 0.4 MG CAP PO SCH (08:33)
[2024-12-07 09:50] LABS: Hemoglobin 15.1 g/dl (14.0-18.0); Mean Corpuscular Hemoglobin 30.8 pg (25.0-34.0); Mean Corpuscular Hgb Conc 34.3 g/dL (32.0-36.0); Mean Corpuscular Volume 89.6 fL (80.0-100.0); Mean Platelet Volume 10.8 fL (9.4-12.4); Platelet Count 150 K/uL (130-400); RDW Coefficient of Variation 12.9 % (11.5-14.5); RDW Standard Deviation 42.4 fL (36.4-46.3); Red Blood Count 4.91 M/uL (4.70-6.10); White Blood Count 9.89 K/ul (4.8-10.8)
[2024-12-07 10:04] LABS: Calcium 9.1 mg/dl (8.6-10.3); Creatinine Clr Calc Pharmacy 91.2 ml/min; Potassium 4.2 mmol/L (3.5-5.1)
[2024-12-07 11:08] VITALS: BP 113/77; RESP 17; TEMP 97.9
--- NOTE | 2024-12-07 12:26 | Discharge Summary ---
Date of Service December 07, 2024 Admission HPI Per Admitting Provider William Cruz is a 69-year-old male with history of hypertension, diabetes, BPH and coronary artery disease presenting with right flank pain. Starting on 12/03/2024 patient began developing waves of nausea. Later in the day he developed right sided back pain with radiation into the groin. He was seen in the emergency room at [facility] and had a CT of the abdomen performed which revealed a 6 mm obstructing stone in the right ureter at the level of the pelvic inlet with associated right-sided hydronephrosis and hydroureter. Urinalysis did not suggest infection. Due to exceptionally long wait times patient did leave AGAINST MEDICAL ADVICE And returned home. Overall, he felt well on 12/04 and 12/05. Earlier this morning around 1230 he developed recurrence of nausea and right sided flank pain which prompted him to return to the ER. Patient afebrile, hemodynamically stable. Having some mild flank pain at present otherwise no complaints. ER course: Tylenol, Zofran, Flomax Admission Exam (Per Admitting) Constitutional The patient is awake, alert and oriented 3, well developed and well nourished, normocephalic and atraumatic, lying in bed and in no acute distress. HEENT--PERRL, EOMI, mucous membranes and oropharynx mildly dry Neck--supple. No JVD. No bruits. Thyroid normal, trachea midline, no adenopathy. Heart--normal S1 and S2. No murmurs, rubs or gallops. Lungs--clear bilaterally, no respiratory distress, no accessory muscle use. Abdomen--normal bowel sounds and soft. Extremities--no cyanosis or clubbing. No edema. Dermatologic--normal skin turgor, normal color, no abnormal lymph nodes, no rash. Neurologic--cranial nerves II through XII grossly intact. Rheumatologic--normal range of motion. Psychiatric--normal affect. Discharge Data Consultations 12/06/24 03:01 ED Decision to Admit Stat 12/06/24 03:31 Consult Urology Routine Procedures Performed Operation Date: 12/06/24 07:50 Actual Procedures p Cystoscopy Right Retrograde Pyelogram, Ureteroscopy, Laser Lithotripsy, basket Stone Treatment(Not Applicable) - DO gwendolyn Galindo right ureteral Stent Placement(Not Applicable) - Mike Duran DO Hospital Course (1) Ureterolithiasis: (2) Hypertension: (3) Diabetes: (4) CAD (coronary artery disease): Plan 69-year-old male presenting with several days of intermittent nausea and right flank pain. Found to have an obstructing renal stone at an outside facility on 12/03/2024. Patient with similar pain at present. #Ureterolithiasis He is now s/p Cystoscopy with Right Retrograde Pyelogram, right ureteral Stent Placement, Ureteroscopy, Laser Lithotripsy, basket Stone Extraction, and urete ral dilation Outpatient follow up with urology in 1 week for stent removal #Hypertensionblood pressure mildly elevated present Pain control Continue metoprolol 25 mg p.o. twice daily Can hold lisinopril 10 mg p.o. twice daily Continue to monitor #Diabetesblood sugar mildly elevated at present. Patient is compliant with his home metformin Hold metformin Will treat with insulin sliding scale for now as patient n.p.o., only on oral metformin at home Goal blood sugar 110-180 #Coronary artery diseasepatient denies chest pain Hold aspirin for now Continue atorvastatin 40 mg p.o. every afternoon Continue metoprolol 25 mg p.o. twice daily Holding lisinopril for now Coding Level of Care Code 55008 INP/OBS DISCH >30 MIN Diagnoses Ureterolithiasis N20.1 Hypertension I10 Diabetes E11.9 CAD (coronary artery disease) I25.10 Time Spent (min) 35
[2024-12-07 12:32] VITALS: PULSE 70
--- NOTE | 2024-12-07 12:49 | Urology Progress Note ---
Date of Service December 07, 2024 Assessment & Plan (1) Ureterolithiasis: Plan POD #1 s/p Cystoscopy with Right Retrograde Pyelogram, right ureteral Stent Placement, Ureteroscopy, Laser Lithotripsy, basket Stone Extraction, and ureteral dilation Feeling well, tolerating the stent with minimal bother He is afebrile and hemodynamically stable Labs today show no leukocytosis and normal renal function No further intervention warranted Will arrange outpatient follow-up with our service for stent removal Continue Tamsulosin, prn Pyridium and prn pain medication for stent management Urology will sign off. Please call with any further questions or concerns. Admission and Anticipated Discharge Date Admission Date: December 06, 2024 Subjective Pt seen at bedside today Awake and resting in bed on arrival No acute distress Tolerating stent with minimal bother Voiding without issue Reports some dysuria No fever Review of Systems Constitutional: as per Subjective / HPI Genitourinary: + as per Subjective / HPI Physical Exam Constitutional: no acute distress Respiratory: no respiratory distress and no labored breathing Neurologic: moves all extremities and awake Psychiatric: A+Ox3, euthymic affect Results & Data Vital Signs (Past 12 Hours) Vital Signs Temp Pulse Pulse Resp BP Pulse Ox O2 Del Method 12/07/24 12:31 36.6 C 70 65 17 113/77 96 12/07/24 11:08 36.6 C 65 17 113/77 96 Room Air 12/07/24 07:37 36.5 C 84 15 121/74 96 Room Air 12/07/24 03:22 36.6 C 84 16 135/86 94 Room Air PG Care Time/CCT Total # of Minutes Spent Total Time Spent with Patient: Total time spent is greater than 50% in coordination of care (as documented) at patient's floor/unit and/or counseling patient: Coding Level of Care Code 27267 SUB INP/OBS CARE 2/35MIN Diagnoses Ureterolithiasis N20.1
[2024-12-11 01:12] LABS: Component 2 DNR; Source RIGHT RENAL STONE
== END 2024-12-07 13:03 | disposition home or self-care (01) | DRG 660 ==
LOC: ED 02:34 → SUATTDRO 03:31 → INTOOBSV 03:31 → 3N 03:31